=== PATIENT | male | born 1990 | race Caucasian/White ===

== ENCOUNTER 2018-06-18 18:54 | Emergency (ER) | payer SELFPAY ==
[2018-06-18] MEDS ORDERED: DELTASONE PO STA (19:17)
--- NOTE | 2018-06-18 19:22 | Emergency Department Report ---
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 She has an allergy around 5 to 5:30 M today, which was followed by pruritus to his torso. Post no wheezing, dysphagia, shortness of breath. States he has a known allergies presents most department for treatment options. Exposure: food Symptoms: itching. denies: facial swelling, lip swelling, difficulty swallowing , difficulty breathing, orolingual swelling, hoarseness, syncopy, dizziness, nausea, vomiting Treatment Prior to Arrival: none Previous Allergy History: other (treated with with eigq-jvr-xslxtym medications treated with bpal-crw-gwdjltp medications) - Related Data Previous Rx's Medication Instructions Recorded Last Taken Type Famotidine [Pepcid] 40 mg PO DAILY #14 tablet 06/18/18 Unknown Rx hydrOXYzine HCL [Atarax] 25 mg PO Q6HR PRN #20 tablet 06/18/18 Unknown Rx predniSONE [Deltasone] 50 mg PO QDAY #5 tab 06/18/18 Unknown Rx Allergies Allergy/AdvReac Type Severity Reaction Status Date / Time No Known Allergies Allergy Unverified 06/18/18 19:06 ED Review of Systems ROS: Stated complaint: ALLERGIC REACTION Other details as noted in HPI Constitutional: denies: chills, fever Eyes: denies: eye pain, eye discharge, vision change ENT: denies: ear pain, throat pain Respiratory: denies: cough, shortness of breath, wheezing Cardiovascular: denies: chest pain, palpitations Endocrine: no symptoms reported Gastrointestinal: denies: abdominal pain, nausea, diarrhea Genitourinary: denies: urgency, dysuria Musculoskeletal: denies: back pain, joint swelling, arthralgia Skin: denies: rash, lesions Neurological: denies: headache, weakness, paresthesias Psychiatric: denies: anxiety, depression Hematological/Lymphatic: denies: easy bleeding, easy bruising ED Past Medical Hx - Past Medical History Previous Medical History?: No - Surgical History Past Surgical History?: No - Social History Smoking Status: Current Every Day Smoker Substance Use Type: None, Marijuana - Medications Home Medications: Home Medications Medication Instructions Recorded Confirmed Last Taken Type Famotidine [Pepcid] 40 mg PO DAILY #14 tablet 06/18/18 Unknown Rx hydrOXYzine HCL [Atarax] 25 mg PO Q6HR PRN #20 tablet 06/18/18 Unknown Rx predniSONE [Deltasone] 50 mg PO QDAY #5 tab 06/18/18 Unknown Rx ED Physical Exam - General Limitations: No Limitations General appearance: alert, in no apparent distress - Head Head exam: Present: atraumatic, normocephalic - Eye Eye exam: Present: normal appearance - ENT ENT exam: Present: mucous membranes moist, other (. Airway is patent. Tongue and uvula are midline. No drooling. Normal voice. No angioedema) - Neck Neck exam: Present: normal inspection - Respiratory Respiratory exam: Present: normal lung sounds bilaterally. Absent: respiratory distress - Cardiovascular Cardiovascular Exam: Present: regular rate, normal rhythm. Absent: systolic murmur, diastolic murmur, rubs, gallop - GI/Abdominal GI/Abdominal exam: Present: soft, normal bowel sounds - Rectal Rectal exam: Present: deferred - Extremities Exam Extremities exam: Present: normal inspection - Back Exam Back exam: Present: normal inspection - Neurological Exam Neurological exam: Present: alert, oriented X3 - Psychiatric Psychiatric exam: Present: normal affect, normal mood - Skin Skin exam: Present: warm, dry, intact, normal color. Absent: rash, urticaria, pallor, abrasion ED Course Vital Signs 06/18/18 19:02 Temperature 98.2 F Pulse Rate 86 Respiratory 16 Rate Blood Pressure 161/99 O2 Sat by Pulse 99 Oximetry Critical care attestation.: If time is entered above; I have spent that time in minutes in the direct care of this critically ill patient, excluding procedure time. ED Disposition Clinical Impression: Allergic reaction Disposition: DC-01 TO HOME OR SELFCARE Is pt being admited?: No Does the pt Need Aspirin: No Condition: Stable Instructions: Anaphylaxis (ED), Food Allergy (ED), Urticaria (ED) Prescriptions: Famotidine [Pepcid] 40 mg PO DAILY #14 tablet hydrOXYzine HCL [Atarax] 25 mg PO Q6HR PRN #20 tablet PRN Reason: Itching predniSONE [Deltasone] 50 mg PO QDAY #5 tab Referrals: [facility] [Provider Group] - 2-3 Days
[2018-06-18 19:57] VITALS: BP 122/69
== END 2018-06-18 19:55 | disposition home or self-care (01) ==
LOC: ED 18:54
DX: T78.40XA Allergy, unspecified, initial encounter (principal); L29.9 Pruritus, unspecified; F17.200 Nicotine dependence, unspecified, uncomplicated; F12.10 Cannabis abuse, uncomplicated; X58.XXXA Exposure to other specified factors, initial encounter
CPT/HCPCS: 99282; J7512

== ENCOUNTER 2018-12-24 15:16 | Emergency (ER) | payer OTHER ==
[2018-12-24 15:25] VITALS: BP 127/77
[2018-12-24] MEDS ORDERED: DUONEB *Not for PRN Use IH ONE (15:26)
--- NOTE | 2018-12-24 15:26 | Emergency Department Report ---
Chief Complaint: Upper Respiratory Infection Stated Complaint: SOB Time Seen by Provider: 12/24/18 15:22 - HPI History of Present Illness: pt presents with SOB that began last night pt has cough chest discomfort with coughing no fever denies pleuritic CP (+) seasonal allergies smoker states quit 3 days ago occ drinker no drug use MSE screening note: Focused history and physical exam performed. Due to findings the following was ordered: CXR, neb tx ED Disposition for MSE Condition: Stable
[2018-12-24] MEDS ORDERED: ROBITUSSIN PO ONE (16:34)
[2018-12-24] MEDS ORDERED: DELTASONE PO ONE (16:37)
--- NOTE | 2018-12-24 16:37 | Emergency Department Report ---
Minor Respiratory - HPI Minor Respiratory: Yes Able to Tolerate Fluids, Yes Cough, Yes Shortness of Breath, No Rhinorrhea, No Sore Throat, No Ear Pain, No Sick Contacts, No Hemoptysis, No Chest Pain, No Fever Other History: Patient is a 28-year-old 3 days quit smoker who presents complaining of cough 3 days patient describes cough as nonproductive dry cough. Patient denies any history of asthma. Patient states shortness of breath started today this morning. Patient states he did not come into contact with any allergens or contaminants. He denies chest pain, throat pain, fever, nausea or vomiting. <SYLVIE LEROY - Last Filed: 12/24/18 16:37> <DAVID KELLER - Last Filed: 12/24/18 20:05> - HPI Chief Complaint: Upper Respiratory Infection Stated Complaint: SOB Time Seen by Provider: 12/24/18 15:22 ED Review of Systems ROS: Stated complaint: SOB Other details as noted in HPI Comment: All other systems reviewed and negative <SYLVIE LEROY - Last Filed: 12/24/18 16:37> ROS: Stated complaint: SOB Other details as noted in HPI <DAVID KELLER - Last Filed: 12/24/18 20:05> ED Past Medical Hx - Past Medical History Previous Medical History?: No - Surgical History Past Surgical History?: No - Social History Smoking Status: Current Every Day Smoker Substance Use Type: None <SYLVIE LEROY - Last Filed: 12/24/18 16:37> <DAVID KELLER - Last Filed: 12/24/18 20:05> - Medications Home Medications: Home Medications Medication Instructions Recorded Confirmed Last Taken Type Famotidine [Pepcid] 40 mg PO DAILY #14 tablet 06/18/18 Unknown Rx hydrOXYzine HCL [Atarax] 25 mg PO Q6HR PRN #20 tablet 06/18/18 Unknown Rx predniSONE [Deltasone] 50 mg PO QDAY #5 tab 06/18/18 Unknown Rx Benzonatate [Tessalon Perles] 100 mg PO Q8HR #15 capsule 12/24/18 Unknown Rx Minor Respiratory Exam - Exam General: Vital signs noted. No distress. Alert and acting appropriately. HEENT: Yes Moist Mucous Membranes, No Pharyngeal Erythema, No Pharyngeal Exudates, No Rhinorrhea, No Conjuctival Injection, No Frontal Tenderness, No Maxillary Tenderness Ear: Neither TM Bulge, Neither TM Erythema, Neither EAC Pain, Neither EAC Discharge Neck: Yes Supple, No Adenopathy Lungs: Yes Good Air Exchange, No Wheezes, No Ronchi, No Stridor, No Cough, No Labored Respirations, No Retractions, No Use of Accessory Muscles, No Other Abnormal Lung Sounds Heart: Yes Regular, No Murmur Abdomen: Yes Normal Bowel Sounds, No Tenderness, No Peritoneal Signs Skin: No Rash, No Edema Neurologic: Alert and oriented, no deficits. Musculoskeletal: Unremarkable. <SYLVIE LEROY - Last Filed: 12/24/18 16:37> - Exam General: Vital signs noted. No distress. Alert and acting appropriately. Neurologic: Alert and oriented, no deficits. Musculoskeletal: Unremarkable. <ARIANNAKEVIN' Bari - Last Filed: 12/24/18 20:05> ED Course Vital Signs 12/24/18 12/24/18 15:23 15:45 Temperature 99.3 F Pulse Rate 99 H Pulse Rate [ 83 Bilateral] Respiratory 19 Rate Respiratory 18 Rate [Bilateral ] Blood Pressure 127/77 [Left] O2 Sat by Pulse 97 Oximetry <SYLVIE LEROY - Last Filed: 12/24/18 16:37> Vital Signs 12/24/18 12/24/18 15:23 15:45 Temperature 99.3 F Pulse Rate 99 H Pulse Rate [ 83 Bilateral] Respiratory 19 Rate Respiratory 18 Rate [Bilateral ] Blood Pressure 127/77 [Left] O2 Sat by Pulse 97 Oximetry <SINDYLESKEVINAlex Bari - Last Filed: 12/24/18 20:05> ED Medical Decision Making - Medical Decision Making 28-year-old male presents with shortness of breath Chest x-ray ordered and pending. Respiratory breathing treatment and prednisone ordered awaiting administration Pulmonary evaluation: lungs are clear, no rales no rhonchi no wheezing. Vision is satting 99% oxygen on room air Patient is to be reevaluated <SYLVIE LEROY - Last Filed: 12/24/18 16:37> - Radiology Data Radiology results: report reviewed Patient: JARETT MUNGUIA MR#: [id number] : 1990 Acct:[id number] Age/Sex: 28 / M ADM Date: 12/24/18 Loc: ED Attending Dr: Ordering Physician: DELANO MENDOZA Date of Service: 12/24/18 Procedure(s): XR chest routine 2V Accession Number(s): [id number] cc: DELANO MENDOZA Fluoro Time In Minutes: PROCEDURE: XR CHEST ROUTINE 2V TECHNIQUE: Chest 2 views HISTORY: SOB, cough COMPARISONS: FINDINGS: Cardiac and mediastinal contours are unremarkable. No focal pulmonary infiltrate identified. No pleural fluid collection seen. Mild thickening of the minor fissure noted. Pulmonary vasculature is unremarkable. IMPRESSION: No acute findings in the chest. This document is electronically signed by Willie Hudson MD., December 24 2018 05:44:14 PM ET Transcribed By: RJ Dictated By: JAVIER HUDSON MD Electronically Authenticated By: JAVIER HUDSON MD Signed Date/Time: 12/24/181744 DD/ 57 TD/TT: 12/24/181657 <DAVID KELLER - Last Filed: 12/24/18 20:05> Critical care attestation.: If time is entered above; I have spent that time in minutes in the direct care of this critically ill patient, excluding procedure time. <SYLVIE LEROY - Last Filed: 12/24/18 16:37> Critical care attestation.: If time is entered above; I have spent that time in minutes in the direct care of this critically ill patient, excluding procedure time. <DAVID KELLER - Last Filed: 12/24/18 20:05> ED Disposition <SYLVIE LEROY - Last Filed: 12/24/18 16:37> Is pt being admited?: No Does the pt Need Aspirin: No <DAVID KELLER - Last Filed: 12/24/18 20:05> Clinical Impression: Cough Disposition: DC-01 TO HOME OR SELFCARE Condition: Stable Instructions: Antitussives (By mouth), Cold Symptoms (ED) Additional Instructions: Take medication as prescribed. Increase fluid. Take over the counter Zyrtec. Prescriptions: Benzonatate [Tessalon Perles] 100 mg PO Q8HR #15 capsule Referrals: CORIN DIAZ MD [Primary Care Provider] - 3-5 Days Forms: Work/School Release Form(ED)
--- NOTE | 2018-12-24 17:45 | XRay Report ---
PROCEDURE: XR CHEST ROUTINE 2V TECHNIQUE: Chest 2 views HISTORY: SOB, cough COMPARISONS: FINDINGS: Cardiac and mediastinal contours are unremarkable. No focal pulmonary infiltrate identified. No pleur al fluid collection seen. Mild thickening of the minor fissure noted. Pulmonary vasculature is unrema rkable. IMPRESSION: No acute findings in the chest. This document is electronically signed by Willie Figueroa MD., December 24 2018 05:44:14 PM ET
== END 2018-12-24 20:12 | disposition home or self-care (01) ==
LOC: ED 15:16
DX: R05 Cough (principal); R06.02 Shortness of breath; F17.200 Nicotine dependence, unspecified, uncomplicated
CPT/HCPCS: 71046; 94640; 99283; J7512

== ENCOUNTER 2019-03-18 01:30 | Emergency (ER) | payer OTHER ==
[2019-03-18 01:39] VITALS: BP 130/84
[2019-03-18] MEDS ORDERED: SOLU-Medrol IM ONE (02:44)
[2019-03-18] MEDS ORDERED: IBUPROFEN PO ONE (02:44)
[2019-03-18] MEDS ORDERED: PROVENTIL IH ONE (02:44)
[2019-03-18] MEDS ORDERED: XYLOCAINE 1% MPF 5 mL INFILTRATI ONE (02:46)
[2019-03-18] MEDS ORDERED: ROCEPHIN IM ONE (02:46)
--- NOTE | 2019-03-18 02:46 | Emergency Department Report ---
Minor Respiratory - HPI Chief Complaint: Upper Respiratory Infection Stated Complaint: SOB BODY ACHES DIZZINESS COUGH Time Seen by Provider: 03/18/19 02:44 Duration: 3 Days Pain Location: Chest Severity: mild Minor Respiratory: Yes Able to Tolerate Fluids, Yes Cough, Yes Shortness of Breath, No Rhinorrhea, No Sore Throat, No Ear Pain, No Sick Contacts, No Hemoptysis, No Chest Pain, No Fever Other History: 29 yo with asthma comes to ER with cough cold and congestion. Wheezing on admit. no fever. pos chills per pt. ED Review of Systems ROS: Stated complaint: SOB BODY ACHES DIZZINESS COUGH Other details as noted in HPI Comment: All other systems reviewed and negative ED Past Medical Hx - Past Medical History Previous Medical History?: Yes Hx Asthma: Yes - Surgical History Past Surgical History?: Yes Additional Surgical History: as baby - Family History Family history: no significant - Social History Smoking Status: Current Every Day Smoker Substance Use Type: None - Medications Home Medications: Home Medications Medication Instructions Recorded Confirmed Last Taken Type ALBUTEROL Inhaler (OR & NICU) 2 puff IH QID PRN #1 inhalation 03/18/19 Unknown Rx [ProAir HFA Inhaler] Azithromycin [Zithromax Z-UMANG] 250 mg PO DAILY #6 tablet 03/18/19 Unknown Rx Benzonatate [Tessalon Perles] 100 mg PO Q8HR PRN #20 capsule 03/18/19 Unknown Rx Fluticasone [Flonase] 1 spray NS QDAY #1 bottle 03/18/19 Unknown Rx predniSONE [Deltasone] 20 mg PO DAILY #5 tablet 03/18/19 Unknown Rx Minor Respiratory Exam - Exam General: Vital signs noted. No distress. Alert and acting appropriately. HEENT: Yes Moist Mucous Membranes, No Pharyngeal Erythema, No Pharyngeal Exudates Ear: Neither TM Bulge, Neither TM Erythema, Neither EAC Pain, Neither EAC Discharge Neck: Yes Supple, No Adenopathy Lungs: Yes Good Air Exchange, Yes Wheezes, Yes Cough, No Ronchi, No Stridor Heart: Yes Regular Neurologic: Alert and oriented, no deficits. Musculoskeletal: Unremarkable. ED Course Vital Signs 03/18/19 01:33 Temperature 99.6 F Pulse Rate 95 H Respiratory 18 Rate Blood Pressure 130/84 O2 Sat by Pulse 95 Oximetry ED Medical Decision Making - Medical Decision Making duoneb, rocephin and solumedrol in ER dc home with dc plan of care including pcp follow up Vital Signs 03/18/19 01:33 Temperature 99.6 F Pulse Rate 95 H Respiratory 18 Rate Blood Pressure 130/84 O2 Sat by Pulse 95 Oximetry - Differential Diagnosis a/c asthma Critical care attestation.: If time is entered above; I have spent that time in minutes in the direct care of this critically ill patient, excluding procedure time. ED Disposition Clinical Impression: URTI (acute upper respiratory infection), Acute bronchitis Disposition: DC-01 TO HOME OR SELFCARE Is pt being admited?: No Does the pt Need Aspirin: No Condition: Stable Instructions: Acute Bronchitis (ED) Additional Instructions: hydrate well with water meds as ordered follow up with pcp this week to be sure you are getting better motrin or tylenol for fever or pain Prescriptions: predniSONE [Deltasone] 20 mg PO DAILY #5 tablet Fluticasone [Flonase] 1 spray NS QDAY #1 bottle ALBUTEROL Inhaler (OR & NICU) [ProAir HFA Inhaler] 2 puff IH QID PRN #1 inhalation PRN Reason: Shortness Of Breath Benzonatate [Tessalon Perles] 100 mg PO Q8HR PRN #20 capsule PRN Reason: Cough Azithromycin [Zithromax Z-UMANG] 250 mg PO DAILY #6 tablet Referrals: [facility] MD KRIS [Primary Care Provider] - 3-5 Days RAYMOND HUANG MD [Staff Physician] - 3-5 Days Time of Disposition: 02:46
== END 2019-03-18 03:42 | disposition home or self-care (01) ==
LOC: ED 01:30
DX: J06.9 Acute upper respiratory infection, unspecified (principal); J20.9 Acute bronchitis, unspecified; J45.909 Unspecified asthma, uncomplicated; F17.200 Nicotine dependence, unspecified, uncomplicated; Z91.010 Allergy to peanuts; Z91.013 Allergy to seafood; Z79.899 Other long term (current) drug therapy
CPT/HCPCS: 94640; 96372; 99283; J0696; J2930

== ENCOUNTER 2019-03-19 18:25 | Emergency (ER) | payer OTHER ==
[2019-03-19] MEDS ORDERED: DECADRON IM ONE (18:35)
[2019-03-19 18:36] VITALS: BP 123/75
[2019-03-19] MEDS ORDERED: PROVENTIL IH ONE ×2 (18:36→18:40)
[2019-03-19] MEDS ORDERED: ATROVENT IH ONE ×2 (18:36→18:40)
--- NOTE | 2019-03-19 18:37 | Event Note ---
ED Screening Note Date of service: 03/19/19 Time: 18:37 ED Screening Note: 29 y/o male comes in for SOB and wheezing. Has not been able to get inhaler secondary to no money. This initial assessment/diagnostic orders/clinical plan/treatment(s) is/are subject to change based on patients health status, clinical progression and re- assessment by fellow clinical providers in the ED. Further treatment and workup at subsequent clinical providers discretion. Patient/guardian urged not to elope from the ED as their condition may be serious if not clinically assessed and managed. Initial orders include:
--- NOTE | 2019-03-19 19:37 | Emergency Department Report ---
ED Asthma HPI - General Chief Complaint: Dyspnea/Respdistress Stated Complaint: SCOTT Time Seen by Provider: 03/19/19 18:43 Source: patient Mode of arrival: Ambulatory Limitations: No Limitations - History of Present Illness Initial Comments: This is a 29-year-old male nontoxic, well nourished in appearance, no acute signs of distress presents to the ED with c/o of acute on chronic asthma exacerbation. Patient stated she is out of her albuterol inhaler. Patient denies any cough. Patient denies any sick contact. Patient denies any recent travels, long car, recent hospital stays. Patient denies any calf pain or calf tenderness. Patient denies any chest pain, short of breath, fever, chills, nausea, vomiting, hemoptysis, numbness, tingling, headache or stiff neck. Past medical history includes asthma. MD Complaint: "asthma attack", shortness of breath, wheezing -: This afternoon Asthma History: childhood onset Severity: mild Context: none known Associated Symptoms: dry cough. denies: productive cough, fever, chest pain, hemoptysis, leg edema, syncope - Related Data Current Asthma Therapy: none Previous Rx's Medication Instructions Recorded Last Taken Type ALBUTEROL Inhaler (OR & NICU) 2 puff IH QID PRN #1 inhalation 03/18/19 Unknown Rx [ProAir HFA Inhaler] Azithromycin [Zithromax Z-UMANG] 250 mg PO DAILY #6 tablet 03/18/19 Unknown Rx Benzonatate [Tessalon Perles] 100 mg PO Q8HR PRN #20 capsule 03/18/19 Unknown Rx Fluticasone [Flonase] 1 spray NS QDAY #1 bottle 03/18/19 Unknown Rx predniSONE [Deltasone] 20 mg PO DAILY #5 tablet 03/18/19 Unknown Rx ALBUTEROL Inhaler (OR & NICU) 2 puff IH QID PRN #1 inhalation 03/19/19 Unknown Rx [ProAir HFA Inhaler] Prednisone [predniSONE 10 mg 10 mg PO .TAPER #1 tab.ds.pk 03/19/19 Unknown Rx (6-Day Pack, 21 Tabs)] Allergies Allergy/AdvReac Type Severity Reaction Status Date / Time pecan nut Allergy Swelling Verified 03/18/19 01:38 shellfish derived Allergy Hives Verified 12/24/18 15:18 ED Review of Systems ROS: Stated complaint: SCOTT Other details as noted in HPI Constitutional: denies: chills, fever Eyes: denies: eye pain, eye discharge, vision change ENT: denies: ear pain, throat pain Respiratory: shortness of breath, wheezing. denies: cough Cardiovascular: denies: chest pain, palpitations Endocrine: no symptoms reported Gastrointestinal: denies: abdominal pain, nausea, diarrhea Genitourinary: denies: urgency, dysuria Musculoskeletal: denies: back pain, joint swelling, arthralgia Skin: denies: rash, lesions Neurological: denies: headache, weakness, paresthesias Psychiatric: denies: anxiety, depression Hematological/Lymphatic: denies: easy bleeding, easy bruising ED Past Medical Hx - Past Medical History Hx Asthma: Yes - Surgical History Additional Surgical History: as baby - Social History Smoking Status: Current Every Day Smoker Substance Use Type: None - Medications Home Medications: Home Medications Medication Instructions Recorded Confirmed Last Taken Type ALBUTEROL Inhaler (OR & NICU) 2 puff IH QID PRN #1 inhalation 03/18/19 Unknown Rx [ProAir HFA Inhaler] Azithromycin [Zithromax Z-UMANG] 250 mg PO DAILY #6 tablet 03/18/19 Unknown Rx Benzonatate [Tessalon Perles] 100 mg PO Q8HR PRN #20 capsule 03/18/19 Unknown Rx Fluticasone [Flonase] 1 spray NS QDAY #1 bottle 03/18/19 Unknown Rx predniSONE [Deltasone] 20 mg PO DAILY #5 tablet 03/18/19 Unknown Rx ALBUTEROL Inhaler (OR & NICU) 2 puff IH QID PRN #1 inhalation 03/19/19 Unknown Rx [ProAir HFA Inhaler] Prednisone [predniSONE 10 mg 10 mg PO .TAPER #1 tab.ds.pk 03/19/19 Unknown Rx (6-Day Pack, 21 Tabs)] ED Physical Exam - General Limitations: No Limitations General appearance: alert, in no apparent distress - Head Head exam: Present: atraumatic, normocephalic - Eye Eye exam: Present: normal appearance - Neck Neck exam: Present: normal inspection, full ROM. Absent: tenderness, m eningismus, lymphadenopathy - Respiratory Respiratory exam: Present: normal lung sounds bilaterally, wheezes (bilateral upper and lower lobes). Absent: respiratory distress, rales, rhonchi, stridor, chest wall tenderness, accessory muscle use, decreased breath sounds, prolonged expiratory - Cardiovascular Cardiovascular Exam: Present: regular rate, normal rhythm, normal heart sounds. Absent: irregular rhythm, systolic murmur, diastolic murmur, rubs, gallop - Rectal Rectal exam: Present: deferred - Extremities Exam Extremities exam: Present: normal inspection, full ROM, normal capillary refill - Back Exam Back exam: Present: normal inspection, full ROM - Neurological Exam Neurological exam: Present: alert, oriented X3, normal gait - Psychiatric Psychiatric exam: Present: normal affect, normal mood - Skin Skin exam: Present: warm, dry, intact, normal color. Absent: rash ED Course Vital Signs 03/19/19 18:35 Temperature 97.8 F Pulse Rate 96 H Respiratory 24 Rate Blood Pressure 123/75 O2 Sat by Pulse 99 Oximetry - Reevaluation(s) Reevaluation #1: 03/19/19 19:35 Patient is speaking in full sentences with no signs of distress noted. ED Medical Decision Making - Medical Decision Making This is a 29-year-old male that presents with asthma exacerbation. Patient is stable and was examined by me. Chest x-ray has been obtained and dictated by the radiologist within normal limits. Patient is notified of the x-ray report with no questions noted by the patient. Patient did receive breathing treatment and steroids in the ED which patient the symptoms has resolved and subsided. Posttreatment and there is no wheezing upon auscultation. Patient is discharged with albuterol and prednisone. Patient also received a good Rx discount perception card at discharge. Patient was referred to Follow-up with a primary care doctor in 3-5 days or if symptoms worsen and continue return to emergency room as soon as possible. At time of discharge, the patient does not seem toxic or ill in appearance. No acute signs of distress noted. Patient agrees to discharge treatment plan of care. No further questions noted by the patient. This chart is dictated with using [employer] Critical care attestation.: If time is entered above; I have spent that time in minutes in the direct care of this critically ill patient, excluding procedure time. ED Disposition Clinical Impression: Asthma exacerbation Qualifiers: Asthma severity: mild Asthma persistence: intermittent Qualified Code(s): J45.21 - Mild intermittent asthma with (acute) exacerbation Disposition: DC-01 TO HOME OR SELFCARE Is pt being admited?: No Does the pt Need Aspirin: No Condition: Stable Instructions: Asthma (ED) Additional Instructions: Follow-up with a primary care doctor in 3-5 days or if symptoms worsen and cont inue return to emergency room as soon as possible. Prescriptions: Prednisone [predniSONE 10 mg (6-Day Pack, 21 Tabs)] 10 mg PO .TAPER #1 tab.ds.pk ALBUTEROL Inhaler (OR & NICU) [ProAir HFA Inhaler] 2 puff IH QID PRN #1 inhalation PRN Reason: Shortness Of Breath Referrals: PRIMARY CARE, [Referring] - 3-5 Days THONG TRINIDAD MD [Staff Physician] - 3-[address] [facility] [place] [Outside] - 3-5 Days [facility] [Outside] - 3-5 Days Forms: Work/School Release Form(ED)
[2019-03-19] MEDS ORDERED: IBUPROFEN PO ONE (19:54)
--- NOTE | 2019-03-19 21:08 | XRay Report ---
CHEST 2 VIEWS INDICATION / CLINICAL INFORMATION: sob. Dyspnea COMPARISON: None available. FINDINGS: SUPPORT DEVICES: None. HEART / MEDIASTINUM: No significant abnormality. LUNGS / PLEURA: No significant pulmonary or pleural abnormality. No pneumothorax. ADDITIONAL FINDINGS: No significant additional findings. IMPRESSION: 1. No acute findings. Signer Name: Shaun Nelson MD Signed: 03/19/2019 9:04 PM Workstation Name: [id number]
== END 2019-03-19 21:17 | disposition home or self-care (01) ==
LOC: ED 18:25
DX: J45.21 Mild intermittent asthma with (acute) exacerbation (principal); F17.200 Nicotine dependence, unspecified, uncomplicated; Z79.899 Other long term (current) drug therapy; Z91.010 Allergy to peanuts; Z91.013 Allergy to seafood
CPT/HCPCS: 71046; 94640; 96372; 99283; J1100

== ENCOUNTER 2019-04-27 13:22 | Emergency (ER) | payer OTHER ==
[2019-04-27 13:45] VITALS: BP 134/83
--- NOTE | 2019-04-27 13:47 | Event Note ---
ED Screening Note Date of service: 04/27/19 Time: 13:42 ED Screening Note: 29 y o male with pmh of asthma presents with Allegic reaction while at work he inhaled shell fish cc of tingling to lips and arms no rash This initial assessment/diagnostic orders/clinical plan/treatment(s) is/are subject to change based on patients health status, clinical progression and re- assessment by fellow clinical providers in the ED. Further treatment and workup at subsequent clinical providers discretion. Patient/guardian urged not to elope from the ED as their condition may be serious if not clinically assessed and managed. Initial orders include: steroids , benadryl, pepcid
[2019-04-27] MEDS ORDERED: BENADRYL IV ONE (14:24)
[2019-04-27] MEDS ORDERED: DECADRON IV ONE (14:24)
[2019-04-27] MEDS ORDERED: NACL 0.9% 1000 ML 1,000 ML IV ONE (14:24)
[2019-04-27] MEDS ORDERED: PEPCID IV ONE (14:24)
--- NOTE | 2019-04-27 14:26 | Emergency Department Report ---
ED Allergic Reaction HPI - General Chief complaint: Allergic Reaction Stated complaint: ALLERGIC REACTION Time Seen by Provider: 04/27/19 13:42 Source: patient Mode of arrival: Ambulatory Limitations: No Limitations - History of Present Illness Initial Comments: This is a 29-year-old male nontoxic, well nourished in appearance, no acute signs of distress presents to the ED with c/o of generalized itching after being exposed to shellfish at work. He denies any rash or hives. Denies any angioedema or swelling. Patient denies any drooling, hoarseness or facial swelling. Patient denies any trauma. She denies any fever, chills, nausea, vomiting, chest pain, shortness of breath, headache, stiff neck, numbness or tingling. Patient denies any drug allergies with no significant PMH. MD Complaint: other (itching) -: This afternoon Exposure: food Symptoms: itching. denies: rash, facial swelling, lip swelling, difficulty swallowing, difficulty breathing, orolingual swelling, hoarseness, syncopy, dizziness, nausea, vomiting, abdominal pain Severity: mild Treatment Prior to Arrival: none Previous Allergy History: none - Related Data Previous Rx's Medication Instructions Recorded Last Taken Type ALBUTEROL Inhaler (OR & NICU) 2 puff IH QID PRN #1 inhalation 03/18/19 Unknown Rx [ProAir HFA Inhaler] Azithromycin [Zithromax Z-UMANG] 250 mg PO DAILY #6 tablet 03/18/19 Unknown Rx Benzonatate [Tessalon Perles] 100 mg PO Q8HR PRN #20 capsule 03/18/19 Unknown Rx Fluticasone [Flonase] 1 spray NS QDAY #1 bottle 03/18/19 Unknown Rx predniSONE [Deltasone] 20 mg PO DAILY #5 tablet 03/18/19 Unknown Rx ALBUTEROL Inhaler (OR & NICU) 2 puff IH QID PRN #1 inhalation 03/19/19 Unknown Rx [ProAir HFA Inhaler] Prednisone [predniSONE 10 mg 10 mg PO .TAPER #1 tab.ds.pk 03/19/19 Unknown Rx (6-Day Pack, 21 Tabs)] Prednisone [predniSONE 10 mg 10 mg PO .TAPER #1 tab.ds.pk 04/27/19 Unknown Rx (6-Day Pack, 21 Tabs)] diphenhydrAMINE [Benadryl CAP] 25 mg PO Q6HR PRN #12 capsule 04/27/19 Unknown Rx Allergies Allergy/AdvReac Type Severity Reaction Status Date / Time pecan nut Allergy Swelling Verified 03/18/19 01:38 shellfish derived Allergy Hives Verified 12/24/18 15:18 ED Review of Systems ROS: Stated complaint: ALLERGIC REACTION Other details as noted in HPI Constitutional: denies: chills, fever Eyes: denies: eye pain, eye discharge, vision change ENT: denies: ear pain, throat pain Respiratory: denies: cough, shortness of breath, wheezing Cardiovascular: denies: chest pain, palpitations Endocrine: no symptoms reported Gastrointestinal: denies: abdominal pain, nausea, diarrhea Genitourinary: denies: urgency, dysuria Musculoskeletal: denies: back pain, joint swelling, arthralgia Skin: denies: rash, lesions Neurological: denies: headache, weakness, paresthesias Psychiatric: denies: anxiety, depression Hematological/Lymphatic: denies: easy bleeding, easy bruising ED Past Medical Hx - Past Medical History Hx Psychiatric Treatment: Yes (anxiety) Hx Asthma: Yes - Surgical History Additional Surgical History: as baby - Social History Smoking Status: Current Every Day Smoker Substance Use Type: None - Medications Home Medications: Home Medications Medication Instructions Recorded Confirmed Last Taken Type ALBUTEROL Inhaler (OR & NICU) 2 puff IH QID PRN #1 inhalation 03/18/19 Unknown Rx [ProAir HFA Inhaler] Azithromycin [Zithromax Z-UMANG] 250 mg PO DAILY #6 tablet 03/18/19 Unknown Rx Benzonatate [Tessalon Perles] 100 mg PO Q8HR PRN #20 capsule 03/18/19 Unknown Rx Fluticasone [Flonase] 1 spray NS QDAY #1 bottle 03/18/19 Unknown Rx predniSONE [Deltasone] 20 mg PO DAILY #5 tablet 03/18/19 Unknown Rx ALBUTEROL Inhaler (OR & NICU) 2 puff IH QID PRN #1 inhalation 03/19/19 Unknown Rx [ProAir HFA Inhaler] Prednisone [predniSONE 10 mg 10 mg PO .TAPER #1 tab.ds.pk 03/19/19 Unknown Rx (6-Day Pack, 21 Tabs)] Prednisone [predniSONE 10 mg 10 mg PO .TAPER #1 tab.ds.pk 04/27/19 Unknown Rx (6-Day Pack, 21 Tabs)] diphenhydrAMINE [Benadryl CAP] 25 mg PO Q6HR PRN #12 capsule 04/27/19 Unknown Rx ED Physical Exam - General Limitations: No Limitations General appearance: alert, in no apparent distress - Head Head exam: Present: atraumatic, normocephalic - ENT ENT exam: Present: normal exam, normal orophraynx, other (uvula midline. no facial swelling. no angiedema present.) - Neck Neck exam: Present: normal inspection, full ROM. Absent: tenderness, meningismus, lymphadenopathy - Respiratory Respiratory exam: Present: normal lung sounds bilaterally. Absent: respiratory distress, wheezes, rales, rhonchi, stridor, chest wall tenderness, accessory muscle use, decreased breath sounds, prolonged expiratory - Cardiovascular Cardiovascular Exam: Present: regular rate, normal rhythm, normal heart sounds. Absent: irregular rhythm, systolic murmur, diastolic murmur, rubs, gallop - Extremities Exam Extremities exam: Present: normal inspection, full ROM - Back Exam Back exam: Present: normal inspection, full ROM - Neurological Exam Neurological exam: Present: alert, oriented X3, normal gait - Psychiatric Psychiatric exam: Present: normal affect, normal mood - Skin Skin exam: Present: warm, dry, intact, normal color. Absent: rash ED Course Vital Signs 04/27/19 13:42 Temperature 98.8 F Pulse Rate 95 H Respiratory 18 Rate Blood Pressure 134/83 O2 Sat by Pulse 99 Oximetry - Reevaluation(s) Reevaluation #1: 04/27/19 14:28 Patient is speaking in full sentences with no signs of distress noted. ED Medical Decision Making - Medical Decision Making This is a 29-year-old male that presents with allergic reaction. Patient is stable was examined by me. There is no facial swelling. No angioedema. There is no cellulitis. No hoarseness. Patient received 1 L normal saline, Benadryl, Decadron, and Pepcid in the ED IV. Patient was instructed not to operate any machinery after discharge due to possible drowsiness of Benadryl. Patient stated that a family member will drive patient home after discharge. Patient is discharged with prednisone and Benadryl. Patient was referred to Follow-up with a primary care doctor in 3-5 days or if symptoms worsen and continue return to emergency room as soon as possible. At time of discharge, the patient does not seem toxic or ill in appearance. No acute signs of distress noted. Patient agrees to discharge treatment plan of care. No further questions noted by the patient. Critical care attestation.: If time is entered above; I have spent that time in minutes in the direct care of this critically ill patient, excluding procedure time. ED Disposition Clinical Impression: Allergic reaction Qualifiers: Encounter type: initial encounter Qualified Code(s): T78.40XA - Allergy, unspecified, initial encounter Disposition: TO HOME OR SELFCARE Is pt being admited?: No Does the pt Need Aspirin: No Condition: Stable Instructions: Diphenhydramine (By mouth), Allergies (ED) Additional Instructions: Follow-up with a primary care doctor in 3-5 days or if symptoms worsen and continue return to emergency room as soon as possible. Prescriptions: diphenhydrAMINE [Benadryl CAP] 25 mg PO Q6HR PRN #12 capsule PRN Reason: Itching Prednisone [predniSONE 10 mg (6-Day Pack, 21 Tabs)] 10 mg PO .TAPER #1 tab.ds.pk Referrals: PRIMARY CARE, [Referring] - 3-5 Days THONG TRINIDAD MD [Staff Physician] - 3-5 Days [facility] [place] [Outside] - 3-5 Days [facility] [Outside] - 3-5 Days Forms: Work/School Release Form(ED)
== END 2019-04-27 17:36 | disposition home or self-care (01) ==
LOC: ED 13:22
DX: T78.40XA Allergy, unspecified, initial encounter (principal); J45.909 Unspecified asthma, uncomplicated; F41.9 Anxiety disorder, unspecified; F17.200 Nicotine dependence, unspecified, uncomplicated; Z79.899 Other long term (current) drug therapy; Z91.018 Allergy to other foods; Z91.010 Allergy to peanuts
CPT/HCPCS: 96374; 96375; 99282; J1100; J1200; J7030

== ENCOUNTER 2019-05-21 16:51 | Emergency (ER) | payer OTHER ==
[2019-05-21 17:13] VITALS: BP 111/62
[2019-05-21] MEDS ORDERED: SODIUM CHLORIDE 0.9% 1000 ML 1,000 ML IV ONE (17:45)
[2019-05-21] MEDS ORDERED: dexAMETHasone 20 MG/5 ML VIAL IV ONE (17:45)
[2019-05-21] MEDS ORDERED: diphenhydrAMINE 50 MG/ML VIAL IV ONE (17:45)
--- NOTE | 2019-05-21 19:04 | Emergency Department Report ---
ED Allergic Reaction HPI - General Chief complaint: Allergic Reaction Stated complaint: ALLERGIC REACTION Time Seen by Provider: 05/21/19 17:44 Source: patient Mode of arrival: Ambulatory Limitations: No Limitations - History of Present Illness Initial Comments: This is a 29-year-old male nontoxic, well nourished in appearance, no acute signs of distress presents to the ED with c/o of generalized itching after being exposed to shellfish at work. Patient is known to me with similar symptoms earlier this week. He denies any rash or hives. Denies any angioedema or swelling. Patient denies any drooling, hoarseness or facial swelling. Patient denies any trauma. She denies any fever, chills, nausea, vomiting, chest pain, shortness of breath, headache, stiff neck, numbness or tingling. Patient denies any drug allergies with no significant PMH. MD Complaint: allergic reaction -: This evening Exposure: food Symptoms: itching. denies: rash, facial swelling, lip swelling, difficulty swallowing, difficulty breathing, orolingual swelling, hoarseness, syncopy, dizziness, nausea, vomiting, abdominal pain Treatment Prior to Arrival: none Previous Allergy History: prior ED visit(s) - Related Data Previous Rx's Medication Instructions Recorded Last Taken Type ALBUTEROL Inhaler (OR & NICU) 2 puff IH QID PRN #1 inhalation 03/18/19 Unknown Rx [ProAir HFA Inhaler] Azithromycin [Zithromax Z-UMANG] 250 mg PO DAILY #6 tablet 03/18/19 Unknown Rx Benzonatate [Tessalon Perles] 100 mg PO Q8HR PRN #20 capsule 03/18/19 Unknown Rx Fluticasone [Flonase] 1 spray NS QDAY #1 bottle 03/18/19 Unknown Rx predniSONE [Deltasone] 20 mg PO DAILY #5 tablet 03/18/19 Unknown Rx ALBUTEROL Inhaler (OR & NICU) 2 puff IH QID PRN #1 inhalation 03/19/19 Unknown Rx [ProAir HFA Inhaler] Prednisone [predniSONE 10 mg 10 mg PO .TAPER #1 tab.ds.pk 03/19/19 Unknown Rx (6-Day Pack, 21 Tabs)] Prednisone [predniSONE 10 mg 10 mg PO .TAPER #1 tab.ds.pk 04/27/19 Unknown Rx (6-Day Pack, 21 Tabs)] diphenhydrAMINE [Benadryl CAP] 25 mg PO Q6HR PRN #12 capsule 04/27/19 Unknown Rx Prednisone [predniSONE 10 mg 10 mg PO .TAPER #1 tab.ds.pk 05/21/19 Unknown Rx (6-Day Pack, 21 Tabs)] diphenhydrAMINE [Benadryl CAP] 25 mg PO Q6HR PRN #12 capsule 05/21/19 Unknown Rx Allergies Allergy/AdvReac Type Severity Reaction Status Date / Time pecan nut Allergy Swelling Verified 05/21/19 17:13 shellfish derived Allergy Hives Verified 05/21/19 17:13 ED Review of Systems ROS: Stated complaint: ALLERGIC REACTION Other details as noted in HPI Constitutional: denies: chills, fever Eyes: denies: eye pain, eye discharge, vision change ENT: denies: ear pain, throat pain Respiratory: denies: cough, shortness of breath, wheezing Cardiovascular: denies: chest pain, palpitations Endocrine: no symptoms reported Gastrointestinal: denies: abdominal pain, nausea, diarrhea Genitourinary: denies: urgency, dysuria Musculoskeletal: denies: back pain, joint swelling, arthralgia Skin: other (itching ). denies: rash, lesions Neurological: denies: headache, weakness, paresthesias Psychiatric: denies: anxiety, depression Hematological/Lymphatic: denies: easy bleeding, easy bruising ED Past Medical Hx - Past Medical History Hx Psychiatric Treatment: Yes (anxiety) Hx Asthma: Yes - Surgical History Additional Surgical History: as baby - Social History Smoking Status: Current Every Day Smoker Substance Use Type: None - Medications Home Medications: Home Medications Medication Instructions Recorded Confirmed Last Taken Type ALBUTEROL Inhaler (OR & NICU) 2 puff IH QID PRN #1 inhalation 03/18/19 Unknown Rx [ProAir HFA Inhaler] Azithromycin [Zithromax Z-UMANG] 250 mg PO DAILY #6 tablet 03/18/19 Unknown Rx Benzonatate [Tessalon Perles] 100 mg PO Q8HR PRN #20 capsule 03/18/19 Unknown Rx Fluticasone [Flonase] 1 spray NS QDAY #1 bottle 03/18/19 Unknown Rx predniSONE [Deltasone] 20 mg PO DAILY #5 tablet 03/18/19 Unknown Rx ALBUTEROL Inhaler (OR & NICU) 2 puff IH QID PRN #1 inhalation 03/19/19 Unknown Rx [ProAir HFA Inhaler] Prednisone [predniSONE 10 mg 10 mg PO .TAPER #1 tab.ds.pk 03/19/19 Unknown Rx (6-Day Pack, 21 Tabs)] Prednisone [predniSONE 10 mg 10 mg PO .TAPER #1 tab.ds.pk 04/27/19 Unknown Rx (6-Day Pack, 21 Tabs)] diphenhydrAMINE [Benadryl CAP] 25 mg PO Q6HR PRN #12 capsule 04/27/19 Unknown Rx Prednisone [predniSONE 10 mg 10 mg PO .TAPER #1 tab.ds.pk 05/21/19 Unknown Rx (6-Day Pack, 21 Tabs)] diphenhydrAMINE [Benadryl CAP] 25 mg PO Q6HR PRN #12 capsule 05/21/19 Unknown Rx ED Physical Exam - General Limitations: No Limitations General appearance: alert, in no apparent distress - Head Head exam: Present: atraumatic, normocephalic - ENT ENT exam: Present: normal exam, normal orophraynx, other (uvula midline. no angio edema. no swelling.) - Neck Neck exam: Present: normal inspection, full ROM. Absent: tenderness, meningismus, lymphadenopathy - Respiratory Respiratory exam: Present: normal lung sounds bilaterally. Absent: respiratory distress, wheezes, rales, rhonchi, stridor, chest wall tenderness, accessory muscle use, decreased breath sounds, prolonged expiratory - Cardiovascular Cardiovascular Exam: Present: regular rate, normal rhythm - Extremities Exam Extremities exam: Present: normal inspection, full ROM - Back Exam Back exam: Present: normal inspection, full ROM - Neurological Exam Neurological exam: Present: alert, oriented X3, normal gait - Psychiatric Psychiatric exam: Present: normal affect, normal mood - Skin Skin exam: Present: warm, dry, intact, normal color. Absent: rash, cyanosis, diaphoretic, erythema, vesicles, petechiae, pallor, abrasion, ecchymosis ED Course Vital Signs 05/21/19 17:11 Temperature 99.0 F Pulse Rate 69 Respiratory 16 Rate Blood Pressure 111/62 O2 Sat by Pulse 96 Oximetry - Reevaluation(s) Reevaluation #1: 05/21/19 19:03 Patient is speaking in full sentences with no signs of distress noted. ED Medical Decision Making - Medical Decision Making This is a 29-year-old male that presents with allergic reaction. Patient is s table was examined by me. There is no facial swelling. No angioedema. There is no cellulitis. No hoarseness. Patient received 1 L normal saline, Benadryl, and Decadron in the ED IV. Patient was instructed not to operate any machinery after discharge due to possible drowsiness of Benadryl. Patient stated that a family member will drive patient home after discharge. Patient is discharged with prednisone and Benadryl. Patient was referred to Follow-up with a primary care doctor in 3-5 days or if symptoms worsen and continue return to emergency room as soon as possible. At time of discharge, the patient does not seem toxic or ill in appearance. No acute signs of distress noted. Patient agrees to discharge treatment plan of care. No further questions noted by the patient. Critical care attestation.: If time is entered above; I have spent that time in minutes in the direct care of this critically ill patient, excluding procedure time. ED Disposition Clinical Impression: Allergic reaction Qualifiers: Encounter type: initial encounter Qualified Code(s): T78.40XA - Allergy, unspecified, initial encounter Disposition: DC-01 TO HOME OR SELFCARE Is pt being admited?: No Does the pt Need Aspirin: No Condition: Stable Instructions: Food Allergy (ED) Additional Instructions: Follow-up with a primary care doctor in 3-5 days or if symptoms worsen and continue return to emergency room as soon as possible. Prescriptions: diphenhydrAMINE [Benadryl CAP] 25 mg PO Q6HR PRN #12 capsule PRN Reason: Itching Prednisone [predniSONE 10 mg (6-Day Pack, 21 Tabs)] 10 mg PO .TAPER #1 tab.ds.pk Referrals: PRIMARY CARE, [Referring] - 3-5 Days THONG TRINIDAD MD [Staff Physician] - 3-5 Days [facility] [Outside] - 3-5 Days [facility] [Outside] - 3-5 Days Forms: Work/School Release Form(ED)
== END 2019-05-21 19:15 | disposition home or self-care (01) ==
LOC: ED 16:51
DX: T78.40XA Allergy, unspecified, initial encounter (principal); F41.9 Anxiety disorder, unspecified; J45.909 Unspecified asthma, uncomplicated; F17.200 Nicotine dependence, unspecified, uncomplicated; Z91.010 Allergy to peanuts; Z91.013 Allergy to seafood; Z79.899 Other long term (current) drug therapy; X58.XXXA Exposure to other specified factors, initial encounter
CPT/HCPCS: 96374; 96375; 99282; J1100; J1200; J7030

== ENCOUNTER 2019-06-15 17:03 | Emergency (ER) | payer OTHER ==
--- NOTE | 2019-06-15 17:30 | Event Note ---
ED Screening Note Date of service: 06/15/19 Time: 17:28 ED Screening Note: This is a 29 y.o. M. that presents to the ER with generalized pruritic rash x 1 week. Taking benadryl with increasing spread. This initial assessment/diagnostic orders/clinical plan/treatment(s) is/are subject to change based on patients health status, clinical progression and re- assessment by fellow clinical providers in the ED. Further treatment and workup at subsequent clinical providers discretion. Patient/guardian urged not to elope from the ED as their condition may be serious if not clinically assessed and managed. Initial orders include:
[2019-06-15] MEDS ORDERED: BENADRYL IM ONE (20:40)
[2019-06-15] MEDS ORDERED: PEPCID PO ONE (20:40)
[2019-06-15] MEDS ORDERED: DECADRON IM ONE (20:41)
--- NOTE | 2019-06-15 21:17 | Emergency Department Report ---
ED General Adult HPI - General Chief complaint: Allergic Reaction Stated complaint: ALLERGIC REACTION Time Seen by Provider: 06/15/19 17:27 Source: patient Mode of arrival: Ambulatory Limitations: No Limitations - History of Present Illness Initial comments: 29 yo BM states that he stayed at different location close to week ago and no he has a rash present. Pt also states that he has increased itching today after eating shellfish earlier today. -: Sudden Location: chest, back, abdomen, genitals Radiation: other Severity scale (0 -10): 6 Quality: other (itching) Consistency: intermittent Improves with: none Worsens with: none Associated Symptoms: denies other symptoms Treatments Prior to Arrival: other (Benadryl) - Related Data Previous Rx's Medication Instructions Recorded Last Taken Type ALBUTEROL Inhaler (OR & NICU) 2 puff IH QID PRN #1 inhalation 03/18/19 Unknown Rx [ProAir HFA Inhaler] Azithromycin [Zithromax Z-UMANG] 250 mg PO DAILY #6 tablet 03/18/19 Unknown Rx Benzonatate [Tessalon Perles] 100 mg PO Q8HR PRN #20 capsule 03/18/19 Unknown Rx Fluticasone [Flonase] 1 spray NS QDAY #1 bottle 03/18/19 Unknown Rx predniSONE [Deltasone] 20 mg PO DAILY #5 tablet 03/18/19 Unknown Rx ALBUTEROL Inhaler (OR & NICU) 2 puff IH QID PRN #1 inhalation 03/19/19 Unknown Rx [ProAir HFA Inhaler] Prednisone [predniSONE 10 mg 10 mg PO .TAPER #1 tab.ds.pk 03/19/19 Unknown Rx (6-Day Pack, 21 Tabs)] Prednisone [predniSONE 10 mg 10 mg PO .TAPER #1 tab.ds.pk 04/27/19 Unknown Rx (6-Day Pack, 21 Tabs)] diphenhydrAMINE [Benadryl CAP] 25 mg PO Q6HR PRN #12 capsule 04/27/19 Unknown Rx Prednisone [predniSONE 10 mg 10 mg PO .TAPER #1 tab.ds.pk 05/21/19 Unknown Rx (6-Day Pack, 21 Tabs)] diphenhydrAMINE [Benadryl CAP] 25 mg PO Q6HR PRN #12 capsule 05/21/19 Unknown Rx EPINEPHrine [Epipen] 0.3 mg IM ONCE #1 auto.injct 06/15/19 Unknown Rx Permethrin 5% [Acticin 5% CREAM] 1 applicatio TP ONCE 1 Days #1 tube 06/15/19 Unknown Rx Allergies Allergy/AdvReac Type Severity Reaction Status Date / Time pecan nut Allergy Swelling Verified 06/15/19 17:03 shellfish derived Allergy Hives Verified 06/15/19 17:03 ED Review of Systems ROS: Stated complaint: ALLERGIC REACTION Other details as noted in HPI Constitutional: denies: diaphoresis, fever, malaise Eyes: denies: eye pain, eye discharge, vision change ENT: denies: ear pain, throat pain, dental pain Respiratory: denies: cough, orthopnea, shortness of breath Cardiovascular: denies: chest pain, palpitations, dyspnea on exertion Endocrine: denies: excessive sweating, flushing, intolerance to cold Gastrointestinal: denies: abdominal pain, nausea, vomiting Genitourinary: denies: urgency, dysuria, frequency Musculoskeletal: denies: back pain, joint swelling Skin: rash, pruritus Neurological: denies: headache, weakness, numbness, paresthesias Psychiatric: denies: anxiety, depression Hematological/Lymphatic: denies: easy bleeding, easy bruising, swollen glands ED Past Medical Hx - Past Medical History Hx Hypertension: No Hx CVA: No Hx Heart Attack/AMI: No Hx Congestive Heart Failure: No Hx Diabetes: No Hx Deep Vein Thrombosis: No Hx Pulmonary Embolism: No Hx GERD: No Hx Liver Disease: No Hx Renal Disease: No Hx of Cancer: No Hx Sickle Cell Disease: No Hx Arthritis: No Hx Headaches / Migraines: No Hx Psychiatric Treatment: Yes (anxiety) Hx Asthma: Yes Hx COPD: No Hx Tuberculosis: No Hx Dementia: No - Surgical History Past Surgical History?: No Additional Surgical History: as baby - Social History Smoking Status: Current Every Day Smoker Substance Use Type: Marijuana - Medications Home Medications: Home Medications Medication Instructions Recorded Confirmed Last Taken Type ALBUTEROL Inhaler (OR & NICU) 2 puff IH QID PRN #1 inhalation 03/18/19 Unknown Rx [ProAir HFA Inhaler] Azithromycin [Zithromax Z-UMANG] 250 mg PO DAILY #6 tablet 03/18/19 Unknown Rx Benzonatate [Tessalon Perles] 100 mg PO Q8HR PRN #20 capsule 03/18/19 Unknown R x Fluticasone [Flonase] 1 spray NS QDAY #1 bottle 03/18/19 Unknown Rx predniSONE [Deltasone] 20 mg PO DAILY #5 tablet 03/18/19 Unknown Rx ALBUTEROL Inhaler (OR & NICU) 2 puff IH QID PRN #1 inhalation 03/19/19 Unknown Rx [ProAir HFA Inhaler] Prednisone [predniSONE 10 mg 10 mg PO .TAPER #1 tab.ds.pk 03/19/19 Unknown Rx (6-Day Pack, 21 Tabs)] Prednisone [predniSONE 10 mg 10 mg PO .TAPER #1 tab.ds.pk 04/27/19 Unknown Rx (6-Day Pack, 21 Tabs)] diphenhydrAMINE [Benadryl CAP] 25 mg PO Q6HR PRN #12 capsule 04/27/19 Unknown Rx Prednisone [predniSONE 10 mg 10 mg PO .TAPER #1 tab.ds.pk 05/21/19 Unknown Rx (6-Day Pack, 21 Tabs)] diphenhydrAMINE [Benadryl CAP] 25 mg PO Q6HR PRN #12 capsule 05/21/19 Unknown Rx EPINEPHrine [Epipen] 0.3 mg IM ONCE #1 auto.injct 06/15/19 Unknown Rx Permethrin 5% [Acticin 5% CREAM] 1 applicatio TP ONCE 1 Days #1 tube 06/15/19 Unknown Rx ED Physical Exam - General Limitations: No Limitations General appearance: alert, in no apparent distress - Head Head exam: Present: atraumatic, normocephalic, normal inspection - Eye Eye exam: Present: normal appearance, PERRL, EOMI Pupils: Present: normal accommodation - ENT ENT exam: Present: normal exam, normal orophraynx, mucous membranes dry - Respiratory Respiratory exam: Present: normal lung sounds bilaterally, respiratory distress. Absent: wheezes, rales, rhonchi - Cardiovascular Cardiovascular Exam: Present: regular rate, normal rhythm, normal heart sounds - GI/Abdominal GI/Abdominal exam: Present: soft. Absent: distended, tenderness, guarding - Rectal Rectal exam: Present: deferred - exam: Present: normal inspection. Absent: testicular tenderness, urethral discharge External exam: Present: normal external exam - Extremities Exam Extremities exam: Present: normal inspection, full ROM. Absent: tenderness - Back Exam Back exam: Present: normal inspection, full ROM. Absent: tenderness - Neurological Exam Neurological exam: Present: alert, altered, oriented X3 - Psychiatric Psychiatric exam: Present: normal affect, normal mood - Skin Skin exam: Present: rash, other (diffus, pruritic and papular rash present on the both arms, neck, abdomen, and back) ED Course Vital Signs 06/15/19 17:28 Temperature 98.1 F Pulse Rate 102 H Respiratory 18 Rate Blood Pressure 131/71 O2 Sat by Pulse 98 Oximetry ED Medical Decision Making - Medical Decision Making 29 yo BM states that he stayed at different location close to week ago and no he has a rash present. Pt also states that he has increased itching today after eating shellfish earlier today. Pt was given prednisone, Pepcid and Benadryl in ER for his shellfish allergy. Pt stated that he will call a auto parts delivery driver due to Benadryl injection. He was informed that he may have been exposed to bed bugs/mites while sleeping in a different location than his home. He was instructed to take the medications as prescribed, wash bedding in hot water and to f/u with PCP as needed. See ER as needed. Critical care attestation.: If time is entered above; I have spent that time in minutes in the direct care of this critically ill patient, excluding procedure time. ED Disposition Clinical Impression: Shellfish allergy, Bed bug bite Disposition: DC-01 TO HOME OR SELFCARE Is pt being admited?: No Does the pt Need Aspirin: No Condition: Stable Additional Instructions: He was informed that he may have been exposed to bed bugs/mites while sleeping i n a different location than his home. He was instructed to take the medications as prescribed, wash bedding in hot water and to f/u with PCP as needed. Pt was also informed that if severe allergies arise with shellfish allergy to use Epi- pen as needed. See ER as needed as well. Prescriptions: Permethrin 5% [Acticin 5% CREAM] 1 applicatio TP ONCE 1 Days #1 tube EPINEPHrine [Epipen] 0.3 mg IM ONCE #1 auto.injct Referrals: PRIMARY CARE, [Primary Care Provider] - 3-5 Days Time of Disposition: 21:39
[2019-06-15 22:00] VITALS: BP 125/73
== END 2019-06-15 22:00 | disposition home or self-care (01) ==
LOC: ED 17:03
DX: S20.369A Insect bite (nonvenomous) of unspecified front wall of thorax, initial encounter (principal); S20.469A Insect bite (nonvenomous) of unspecified back wall of thorax, initial encounter; S30.861A Insect bite (nonvenomous) of abdominal wall, initial encounter; S30.865A Insect bite (nonvenomous) of unspecified external genital organs, male, initial encounter; F41.9 Anxiety disorder, unspecified; J45.909 Unspecified asthma, uncomplicated; F17.200 Nicotine dependence, unspecified, uncomplicated; F12.10 Cannabis abuse, uncomplicated; Z91.013 Allergy to seafood; Z91.018 Allergy to other foods; W57.XXXA Bitten or stung by nonvenomous insect and other nonvenomous arthropods, initial encounter; Y93.89 Activity, other specified; Y92.89 Other specified places as the place of occurrence of the external cause; Y99.8 Other external cause status
CPT/HCPCS: 96372; 99282; J1100; J1200

== ENCOUNTER 2019-08-21 14:56 | Emergency (ER) | payer OTHER ==
[2019-08-21 16:25] VITALS: BP 148/79
--- NOTE | 2019-08-21 16:28 | Event Note ---
ED Screening Note ED Screening Note: sore throat and ear pain for 4 days pain with swallow no drainage from the ear no fever PMHx none no daily meds no allergies to meds left otitis media right otitis externa
--- NOTE | 2019-08-21 16:33 | Emergency Department Report ---
ED General Adult HPI - General Chief complaint: Sore Throat Stated complaint: SORE THROAT Time Seen by Provider: 08/21/19 16:24 Source: patient Mode of arrival: Ambulatory Limitations: No Limitations - History of Present Illness Initial comments: pt is a 29 yo male who presents to the ED with c/o sore throat and ear pain for 4 days. he has pain with swallowing. he is tolerating his secretions and PO intake without difficulty. he denies any drainage from the ear, fever, cough, congestion, vomiting. PMHx none. no daily meds, no allergies to meds. - Related Data Previous Rx's Medication Instructions Recorded Last Taken Type ALBUTEROL Inhaler (OR & NICU) 2 puff IH QID PRN #1 inhalation 03/18/19 Unknown Rx [ProAir HFA Inhaler] Azithromycin [Zithromax Z-UMANG] 250 mg PO DAILY #6 tablet 03/18/19 Unknown Rx Benzonatate [Tessalon Perles] 100 mg PO Q8HR PRN #20 capsule 03/18/19 Unknown Rx Fluticasone [Flonase] 1 spray NS QDAY #1 bottle 03/18/19 Unknown Rx predniSONE [Deltasone] 20 mg PO DAILY #5 tablet 03/18/19 Unknown Rx ALBUTEROL Inhaler (OR & NICU) 2 puff IH QID PRN #1 inhalation 03/19/19 Unknown Rx [ProAir HFA Inhaler] Prednisone [predniSONE 10 mg 10 mg PO .TAPER #1 tab.ds.pk 03/19/19 Unknown Rx (6-Day Pack, 21 Tabs)] Prednisone [predniSONE 10 mg 10 mg PO .TAPER #1 tab.ds.pk 04/27/19 Unknown Rx (6-Day Pack, 21 Tabs)] diphenhydrAMINE [Benadryl CAP] 25 mg PO Q6HR PRN #12 capsule 04/27/19 Unknown Rx Prednisone [predniSONE 10 mg 10 mg PO .TAPER #1 tab.ds.pk 05/21/19 Unknown Rx (6-Day Pack, 21 Tabs)] diphenhydrAMINE [Benadryl CAP] 25 mg PO Q6HR PRN #12 capsule 05/21/19 Unknown Rx EPINEPHrine [Epipen] 0.3 mg IM ONCE #1 auto.injct 06/15/19 Unknown Rx Permethrin 5% [Acticin 5% CREAM] 1 applicatio TP ONCE 1 Days #1 tube 06/15/19 Unknown Rx Amoxicillin [Amoxicillin TAB] 875 mg PO BID 10 Days #20 tablet 08/21/19 Unknown Rx Neomycin/Polymyxin B/Hydrocort 4 drops AD QID 7 Days #1 solution 08/21/19 Unknown Rx [Flnevivu-Gwzagnomi-Ne Ear Soln] Allergies Allergy/AdvReac Type Severity Reaction Status Date / Time pecan nut Allergy Swelling Verified 06/15/19 17:03 shellfish derived Allergy Hives Verified 06/15/19 17:03 ED Review of Systems ROS: Stated complaint: SORE THROAT Other details as noted in HPI Comment: All other systems reviewed and negative ED Past Medical Hx - Past Medical History Hx Hypertension: No Hx CVA: No Hx Heart Attack/AMI: No Hx Congestive Heart Failure: No Hx Diabetes: No Hx Deep Vein Thrombosis: No Hx Pulmonary Embolism: No Hx GERD: No Hx Liver Disease: No Hx Renal Disease: No Hx Sickle Cell Disease: No Hx Arthritis: No Hx Headaches / Migraines: No Hx Psychiatric Treatment: Yes (anxiety) Hx Asthma: Yes Hx COPD: No Hx Tuberculosis: No Hx Dementia: No - Surgical History Additional Surgical History: as baby - Social History Smoking Status: Current Every Day Smoker Substance Use Type: None - Medications Home Medications: Home Medications Medication Instructions Recorded Confirmed Last Taken Type ALBUTEROL Inhaler (OR & NICU) 2 puff IH QID PRN #1 inhalation 03/18/19 Unknown Rx [ProAir HFA Inhaler] Azithromycin [Zithromax Z-UMANG] 250 mg PO DAILY #6 tablet 03/18/19 Unknown Rx Benzonatate [Tessalon Perles] 100 mg PO Q8HR PRN #20 capsule 03/18/19 Unknown Rx Fluticasone [Flonase] 1 spray NS QDAY #1 bottle 03/18/19 Unknown Rx predniSONE [Deltasone] 20 mg PO DAILY #5 tablet 03/18/19 Unknown Rx ALBUTEROL Inhaler (OR & NICU) 2 puff IH QID PRN #1 inhalation 03/19/19 Unknown Rx [ProAir HFA Inhaler] Prednisone [predniSONE 10 mg 10 mg PO .TAPER #1 tab.ds.pk 03/19/19 Unknown Rx (6-Day Pack, 21 Tabs)] Prednisone [predniSONE 10 mg 10 mg PO .TAPER #1 tab.ds.pk 04/27/19 Unknown Rx (6-Day Pack, 21 Tabs)] diphenhydrAMINE [Benadryl CAP] 25 mg PO Q6HR PRN #12 capsule 04/27/19 Unknown Rx Prednisone [predniSONE 10 mg 10 mg PO .TAPER #1 tab.ds.pk 05/21/19 Unknown Rx (6-Day Pack, 21 Tabs)] diphenhydrAMINE [Benadryl CAP] 25 mg PO Q6HR PRN #12 capsule 05/21/19 Unknown Rx EPINEPHrine [Epipen] 0.3 mg IM ONCE #1 auto.injct 06/15/19 Unknown Rx Permethrin 5% [Acticin 5% CREAM] 1 applicatio TP ONCE 1 Days #1 tube 06/15/19 Unknown Rx Amoxicillin [Amoxicillin TAB] 875 mg PO BID 10 Days #20 tablet 08/21/19 Unknown Rx Neomycin/Polymyxin B/Hydrocort 4 drops AD QID 7 Days #1 solution 08/21/19 Unknown Rx [Bctkiabk-Ljzigjyec-Yw Ear Soln] ED Physical Exam - General Limitations: No Limitations General appearance: alert, in no apparent distress - Head Head exam: Present: atraumatic, normocephalic - Eye Eye exam: Present: normal appearance - ENT ENT exam: Present: normal orophraynx, mucous membranes moist, other (right canal is erythematous, right TM is intact, left TM is erythematous, left canal is normal, uvula is midline, no uvular edema ) - Respiratory Respiratory exam: Present: normal lung sounds bilaterally. Absent: respiratory distress, wheezes, rales, rhonchi, stridor, chest wall tenderness, accessory muscle use, decreased breath sounds, prolonged expiratory - Cardiovascular Cardiovascular Exam: Present: regular rate, normal rhythm, normal heart sounds. Absent: systolic murmur, diastolic murmur, rubs, gallop - Neurological Exam Neurological exam: Present: alert, oriented X3 - Psychiatric Psychiatric exam: Present: normal affect, normal mood - Skin Skin exam: Present: warm, dry, intact ED Course Vital Signs 08/21/19 16:22 Temperature 98.6 F Pulse Rate 99 H Respiratory 17 Rate Blood Pressure 148/79 ED Medical Decision Making - Medical Decision Making pt is a 29 yo male who presents to the ED with c/o sore throat and ear pain for 4 days. he has pain with swallowing. he is tolerating his secretions and PO intake without difficulty. he denies any drainage from the ear, fever, cough, congestion, vomiting. PMHx none. no daily meds, no allergies to meds. VSS. on exam: normal oropharynx, right canal is erythematous, right TM is intact, left TM is erythematous, left canal is normal, uvula is midline, no uvular edema. Examination consistent with otitis externa and otitis media. Patient given prescriptions for oral antibiotics and antibiotic eardrops. advised pt to please take medication as prescribed. take tylenol or ibuprofen for any discomfort. may do warm salt water gargles, throat spray over the counter. follow up with a primary care doctor in the next 2-3 days. return to the emergency room for any new or worsening symptoms. - Differential Diagnosis pharyngitis, otitis media, otitis externa, mumps, sialoadenititis Critical care attestation.: If time is entered above; I have spent that time in minutes in the direct care of this critically ill patient, excluding procedure time. ED Disposition Clinical Impression: Pain in throat Otitis externa Qualifiers: Otitis externa type: unspecified type Chronicity: acute Laterality: right Qualified Code(s): H60.501 - Unspecified acute noninfective otitis externa, right ear Otitis media Qualifiers: Otitis media type: suppurative Chronicity: acute Laterality: left Recurrence: non-recurrent Spontaneous tympanic membrane rupture: without spontaneous rupture Qualified Code(s): H66.002 - Acute suppurative otitis media without spontaneous rupture of ear drum, left ear Disposition: DC- TO HOME OR SELFCARE Is pt being admited?: No Does the pt Need Aspirin: No Condition: Stable Instructions: Otitis Externa (ED), Otitis Media (ED) Additional Instructions: please take medication as prescribed. take tylenol or ibuprofen for any discomfort. may do warm salt water gargles, throat spray over the counter. follow up with a primary care doctor in the next 2-3 days. return to the emergency room for any new or worsening symptoms. Prescriptions: Amoxicillin [Amoxicillin TAB] 875 mg PO BID 10 Days #20 tablet Neomycin/Polymyxin B/Hydrocort [Ygjfankg-Spbbarnpb-Hg Ear Soln] 4 drops AD QID 7 Days #1 solution Referrals: RAVINDER TORRES MD [Staff Physician] - 2-3 Days [facility] [Outside] - 2-3 Days Forms: Work/School Release Form(ED) Time of Disposition: 16:30 Print Language: WOLOF
== END 2019-08-21 17:04 | disposition home or self-care (01) ==
LOC: ED 14:56
DX: H60.90 Unspecified otitis externa, unspecified ear (principal); J45.909 Unspecified asthma, uncomplicated; F17.200 Nicotine dependence, unspecified, uncomplicated; Z79.2 Long term (current) use of antibiotics; Z79.899 Other long term (current) drug therapy; Z91.010 Allergy to peanuts; Z91.013 Allergy to seafood
CPT/HCPCS: 99282

== ENCOUNTER 2019-09-22 10:45 | Emergency (ER) | payer OTHER ==
[2019-09-22 11:06] VITALS: BP 130/94
--- NOTE | 2019-09-22 11:43 | Emergency Department Report ---
Blank Doc - Documentation Documentation: 29-year-old male that presents with asthma exacerbation and cough. This initial assessment/diagnostic orders/clinical plan/treatment(s) is/are subject to change based on patient's health status, clinical progression and re- assessment by fellow clinical providers in the ED. Further treatment and workup at subsequent clinical providers discretion. Patient/guardians urged not to elope from the ED as their condition may be serious if not clinically assessed and managed. Initial orders include: 1- Patient sent to [facility] for further evaluation and treatment 2- CXR
--- NOTE | 2019-09-22 11:44 | XRay Report ---
CHEST 2 VIEWS INDICATION: productive cough with wheezing. COMPARISON: 03/19/2019 FINDINGS: Support devices: None. Heart: Within normal limits. Lungs/Pleura: No acute air space or interstitial disease. No significant pleural effusion. IMPRESSION: No acute findings. Signer Name: Steven Lambert MD Signed: 09/22/2019 11:39 AM Workstation Name: [email or web address]
[2019-09-22] MEDS ORDERED: predniSONE 20 MG TAB PO ONE (14:07)
[2019-09-22] MEDS ORDERED: IPRATROPIUM 0.02% NEBU 2.5 ML IH ONE (14:08)
[2019-09-22] MEDS ORDERED: ALBUTEROL 2.5 MG/3 ML NEBU IH ONE (14:08)
--- NOTE | 2019-09-22 14:15 | Emergency Department Report ---
- General Chief Complaint: Adult Asthma Stated Complaint: CP/ASTHMA ATTACK Time Seen by Provider: 09/22/19 11:43 Source: patient Mode of arrival: Ambulatory Limitations: No Limitations - History of Present Illness Initial Comments: 29-year-old -[place] male presents to the emergency room complaining of asthma exacerbation and cough 5 days. Patient admits to runny nose and sneezing hot and cold. He does admit to being out of his albuterol inhaler. Patient has a past medical history of asthma currently takes no medications on a daily basis and has no known drug allergies but is allergic to pecans and shellfish. MD Complaint: cough, rhinorrhea, nasal congestion Onset/Timin -: days(s) Severity: mild Consistency: constant Improves With: nothing Worsens With: nothing Associated Symptoms: chills, rhinorrhea, nasal congestion, cough Treatments Prior to Arrival: "cold medicine" - Related Data Previous Rx's Medication Instructions Recorded Last Taken Type Albuterol INH(or & Nicu Only) 2 puff IH QID PRN #1 inhalation 03/18/19 Unknown Rx [ProAir HFA Inhaler] Azithromycin [Zithromax Z-UMANG] 250 mg PO DAILY #6 tablet 03/18/19 Unknown Rx Benzonatate [Tessalon Perles] 100 mg PO Q8HR PRN #20 capsule 03/18/19 Unknown Rx Fluticasone [Flonase] 1 spray NS QDAY #1 bottle 03/18/19 Unknown Rx predniSONE [Deltasone] 20 mg PO DAILY #5 tablet 03/18/19 Unknown Rx Albuterol INH(or & Nicu Only) 2 puff IH QID PRN #1 inhalation 03/19/19 Unknown Rx [ProAir HFA Inhaler] Prednisone [predniSONE 10 mg 10 mg PO .TAPER #1 tab.ds.pk 03/19/19 Unknown Rx (6-Day Pack, 21 Tabs)] Prednisone [predniSONE 10 mg 10 mg PO .TAPER #1 tab.ds.pk 04/27/19 Unknown Rx (6-Day Pack, 21 Tabs)] diphenhydrAMINE [Benadryl CAP] 25 mg PO Q6HR PRN #12 capsule 04/27/19 Unknown Rx Prednisone [predniSONE 10 mg 10 mg PO .TAPER #1 tab.ds.pk 05/21/19 Unknown Rx (6-Day Pack, 21 Tabs)] diphenhydrAMINE [Benadryl CAP] 25 mg PO Q6HR PRN #12 capsule 05/21/19 Unknown Rx EPINEPHrine [Epipen] 0.3 mg IM ONCE #1 auto.injct 06/15/19 Unknown Rx Permethrin 5% [Acticin 5% CREAM] 1 applicatio TP ONCE 1 Days #1 tube 06/15/19 Unknown Rx Amoxicillin [Amoxicillin TAB] 875 mg PO BID 10 Days #20 tablet 08/21/19 Unknown Rx Neomycin/Polymyxin B/Hydrocort 4 drops AD QID 7 Days #1 solution 08/21/19 Unknown Rx [Mamasryf-Bypofldvj-Nq Ear Soln] Albuterol Sulfate [Proair 90 mcg IH QID PRN #1 aer.pow.ba 09/22/19 Unknown Rx Respiclick] Prednisone [predniSONE 5 mg (6-Day 5 mg PO .TAPER #1 tab.ds.pk 09/22/19 Unknown Rx Pack, 21 Tabs)] Allergies Allergy/AdvReac Type Severity Reaction Status Date / Time pecan nut Allergy Swelling Verified 06/15/19 17:03 shellfish derived Allergy Hives Verified 06/15/19 17:03 ED Review of Systems ROS: Stated complaint: CP/ASTHMA ATTACK Other details as noted in HPI Comment: All other systems reviewed and negative ED Past Medical Hx - Past Medical History Previous Medical History?: Yes Hx Hypertension: No Hx CVA: No Hx Heart Attack/AMI: No Hx Congestive Heart Failure: No Hx Diabetes: No Hx Deep Vein Thrombosis: No Hx Pulmonary Embolism: No Hx GERD: No Hx Liver Disease: No Hx Renal Disease: No Hx Sickle Cell Disease: No Hx Arthritis: No Hx Headaches / Migraines: No Hx Psychiatric Treatment: Yes (anxiety) Hx Asthma: Yes Hx COPD: No Hx Tuberculosis: No Hx Dementia: No - Surgical History Past Surgical History?: No Additional Surgical History: as baby - Social History Smoking Status: Current Every Day Smoker Substance Use Type: None - Medications Home Medications: Home Medications Medication Instructions Recorded Confirmed Last Taken Type Albuterol INH(or & Nicu Only) 2 puff IH QID PRN #1 inhalation 03/18/19 Unknown Rx [ProAir HFA Inhaler] Azithromycin [Zithromax Z-UMANG] 250 mg PO DAILY #6 tablet 03/18/19 Unknown Rx Benzonatate [Tessalon Perles] 100 mg PO Q8HR PRN #20 capsule 03/18/19 Unknown Rx Fluticasone [Flonase] 1 spray NS QDAY #1 bottle 03/18/19 Unknown Rx predniSONE [Deltasone] 20 mg PO DAILY #5 tablet 03/18/19 Unknown Rx Albuterol INH(or & Nicu Only) 2 puff IH QID PRN #1 inhalation 03/19/19 Unknown Rx [ProAir HFA Inhaler] Prednisone [predniSONE 10 mg 10 mg PO .TAPER #1 tab.ds.pk 03/19/19 Unknown Rx (6-Day Pack, 21 Tabs)] Prednisone [predniSONE 10 mg 10 mg PO .TAPER #1 tab.ds.pk 04/27/19 Unknown Rx (6-Day Pack, 21 Tabs)] diphenhydrAMINE [Benadryl CAP] 25 mg PO Q6HR PRN #12 capsule 04/27/19 Unknown Rx Prednisone [predniSONE 10 mg 10 mg PO .TAPER #1 tab.ds.pk 05/21/19 Unknown Rx (6-Day Pack, 21 Tabs)] diphenhydrAMINE [Benadryl CAP] 25 mg PO Q6HR PRN #12 capsule 05/21/19 Unknown Rx EPINEPHrine [Epipen] 0.3 mg IM ONCE #1 auto.injct 06/15/19 Unknown Rx Permethrin 5% [Acticin 5% CREAM] 1 applicatio TP ONCE 1 Days #1 tube 06/15/19 Unknown Rx Amoxicillin [Amoxicillin TAB] 875 mg PO BID 10 Days #20 tablet 08/21/19 Unknown Rx Neomycin/Polymyxin B/Hydrocort 4 drops AD QID 7 Days #1 solution 08/21/19 Unknown Rx [Ojltqsed-Mwgtwqfjt-Rh Ear Soln] Albuterol Sulfate [Proair 90 mcg IH QID PRN #1 aer.pow.ba 09/22/19 Unknown Rx Respiclick] Prednisone [predniSONE 5 mg (6-Day 5 mg PO .TAPER #1 tab.ds.pk 09/22/19 Unknown Rx Pack, 21 Tabs)] ED Physical Exam - General Limitations: No Limitations General appearance: alert, in no apparent distress - Head Head exam: Present: atraumatic, normocephalic - Eye Eye exam: Present: normal appearance - ENT ENT exam: Present: mucous membranes moist - Neck Neck exam: Present: normal inspection, full ROM. Absent: tenderness, lymphadenopathy - Respiratory Respiratory exam: Present: normal lung sounds bilaterally. Absent: respiratory distress - Cardiovascular Cardiovascular Exam: Present: regular rate, normal rhythm. Absent: systolic murmur, diastolic murmur, rubs, gallop - Back Exam Back exam: Present: normal inspection - Neurological Exam Neurological exam: Present: alert, oriented X3, normal gait - Psychiatric Psychiatric exam: Present: normal affect, normal mood - Skin Skin exam: Present: warm, dry, intact, normal color. Absent: rash ED Course Vital Signs 09/22/19 11:04 Temperature 98.4 F Pulse Rate 77 Respiratory 16 Rate Blood Pressure 130/94 O2 Sat by Pulse 97 Oximetry ED Medical Decision Making - Medical Decision Making 29-year-old -[place] male presents to the emergency room complaining of asthma exacerbation and cough 5 days. Patient admits to runny nose and sneezing hot and cold. He does admit to being out of his albuterol inhaler. Patient has a past medical history of asthma currently takes no medications on a daily basis and has no known drug allergies but is allergic to pecans and shellfish. Patient was given prednisone 60 mg Atrovent 0.5 mg albuterol 5 mg. X-rays shows no acute findings Critical care attestation.: If time is entered above; I have spent that time in minutes in the direct care of this critically ill patient, excluding procedure time. ED Disposition Clinical Impression: Asthma Disposition: DC-01 TO HOME OR SELFCARE Is pt being admited?: No Does the pt Need Aspirin: No Condition: Stable Instructions: Asthma (ED) Prescriptions: Prednisone [predniSONE 5 mg (6-Day Pack, 21 Tabs)] 5 mg PO .TAPER #1 tab.ds.pk Albuterol Sulfate [Proair Respiclick] 90 mcg IH QID PRN #1 aer.pow.ba PRN Reason: Shortness Of Breath Referrals: [facility] [Provider Group] - 3-5 Days Forms: Work/School Release Form(ED)
== END 2019-09-22 15:39 | disposition home or self-care (01) ==
LOC: ED 10:45
DX: J45.909 Unspecified asthma, uncomplicated (principal); F41.9 Anxiety disorder, unspecified; F17.200 Nicotine dependence, unspecified, uncomplicated; Z79.899 Other long term (current) drug therapy; Z91.013 Allergy to seafood; Z91.010 Allergy to peanuts
CPT/HCPCS: 71046; 94640; 99283; J7512

== ENCOUNTER 2021-03-21 16:04 | Emergency (ER) | payer OTHER ==
[2021-03-21 18:43] VITALS: BP 110/69
--- NOTE | 2021-03-21 19:29 | XRay Report ---
CHEST 2 VIEWS INDICATION / CLINICAL INFORMATION: Cough and night sweats. Headache and loss of taste. COMPARISON: 09/22/19. FINDINGS: SUPPORT DEVICES: None. HEART / MEDIASTINUM: The heart size and pulmonary vasculature are normal. LUNGS / PLEURA: No significant pulmonary or pleural abnormality. No pneumothorax. ADDITIONAL FINDINGS: No significant additional findings. IMPRESSION: No acute findings. I see no evidence of pneumonia. Signer Name: Abel Carrillo MD Signed: 03/21/2021 7:24 PM Workstation Name: [id number]
[2021-03-21] MEDS ORDERED: ACETAMINOPHEN 500 MG TAB PO ONE (20:27)
[2021-03-21] MEDS ORDERED: IBUPROFEN 600 MG TAB PO ONE (20:27)
[2021-03-21] MEDS ORDERED: ONDANSETRON 4 MG ODT TAB PO ONE (20:27)
--- NOTE | 2021-03-21 20:34 | Emergency Department Report ---
- General Chief Complaint: Dyspnea/Respdistress Stated Complaint: FLU SYM Source: patient Mode of arrival: Ambulatory Limitations: No Limitations - History of Present Illness Initial Comments: Patient is a 31-year-old -Portuguese male with history of asthma and anxiety presents to the ED with complaint of acute onset persistent diffuse body aches and pains, nasal and sinus congestion, frontal sinus pressure, persistent dry cough with chills and lack of appetite for the last 5 days. Patient states that he is on sister tested positive for COVID-19 viral infection 2 days ago. Patient states that in the last 12 hours he symptoms have worsened. Patient denies dizziness, syncope, chest pain or shortness of breath, sore throat, nausea, vomiting, diarrhea, dysuria, urinary frequency and urgency, back pain, abdominal pain, change in vision or testicular pain. MD Complaint: cough, rhinorrhea, nasal congestion, sinus pain, other -: Sudden (Diffuse body aches and pains), days(s) (5) Severity scale (0 -10): 8 Quality: sharp, aching Consistency: constant Improves With: nothing Worsens With: nothing Context: sick contacts Associated Symptoms: denies other symptoms, chills, myalgias, headache, rhinorrhea, nasal congestion, cough. denies: diaphoresis, sore throat, stiff neck, chest pain, shortness of breath, abdominal pain, nausea, vomiting, diarrhea, dysuria, rash, confusion, right sweats, weight loss, epistaxis, hoarseness, ear pain, other Treatments Prior to Arrival: none - Related Data Previous Rx's Medication Instructions Recorded Last Taken Type Albuterol Mdi (or & Nicu Only) 2 puff IH QID PRN #1 inhalation 03/18/19 Unknown Rx [ProAir HFA Inhaler] Azithromycin [Zithromax Z-UMANG] 250 mg PO DAILY #6 tablet 03/18/19 Unknown Rx Fluticasone [Flonase] 1 spray NS QDAY #1 bottle 03/18/19 Unknown Rx predniSONE [Deltasone] 20 mg PO DAILY #5 tablet 03/18/19 Unknown Rx Albuterol Mdi (or & Nicu Only) 2 puff IH QID PRN #1 inhalation 03/19/19 Unknown Rx [ProAir HFA Inhaler] Prednisone [predniSONE 10 mg 10 mg PO .TAPER #1 tab.ds.pk 03/19/19 Unknown Rx (6-Day Pack, 21 Tabs)] Prednisone [predniSONE 10 mg 10 mg PO .TAPER #1 tab.ds.pk 04/27/19 Unknown Rx (6-Day Pack, 21 Tabs)] diphenhydrAMINE [Benadryl CAP] 25 mg PO Q6HR PRN #12 capsule 04/27/19 Unknown Rx Prednisone [predniSONE 10 mg 10 mg PO .TAPER #1 tab.ds.pk 05/21/19 Unknown Rx (6-Day Pack, 21 Tabs)] diphenhydrAMINE [Benadryl CAP] 25 mg PO Q6HR PRN #12 capsule 05/21/19 Unknown Rx EPINEPHrine [Epipen] 0.3 mg IM ONCE #1 auto.injct 06/15/19 Unknown Rx Permethrin 5% [Acticin 5% CREAM] 1 applicatio TP ONCE 1 Days #1 tube 06/15/19 Unknown Rx Amoxicillin [Amoxicillin TAB] 875 mg PO BID 10 Days #20 tablet 08/21/19 Unknown Rx Neomycin/Polymyxin B/Hydrocort 4 drops AD QID 7 Days #1 solution 08/21/19 Unknown Rx [Svaahffv-Bkyccaaae-Iu Ear Soln] Albuterol Sulfate [Proair 90 mcg IH QID PRN #1 aer.pow.ba 09/22/19 Unknown Rx Respiclick] Prednisone [predniSONE 5 mg (6-Day 5 mg PO .TAPER #1 tab.ds.pk 09/22/19 Unknown Rx Pack, 21 Tabs)] Acetaminophen [Tylenol] 500 mg PO Q6HR PRN #30 tablet 03/21/21 Unknown Rx Ascorbic Acid [Vitamin C] 1,000 mg PO Q12H #40 tablet 03/21/21 Unknown Rx Benzonatate [Tessalon Perles] 100 mg PO Q8HR PRN #20 capsule 03/21/21 Unknown Rx Ondansetron [Zofran Odt] 4 mg PO Q8HR PRN #15 tab.rapdis 03/21/21 Unknown Rx Zinc [Zinc 50mg TAB] 50 mg PO DAILY #30 tablet 03/21/21 Unknown Rx Allergies Allergy/AdvReac Type Severity Reaction Status Date / Time pecan nut Allergy Swelling Verified 06/15/19 17:03 shellfish derived Allergy Hives Verified 06/15/19 17:03 ED Review of Systems ROS: Stated complaint: FLU SYM Other details as noted in HPI Constitutional: denies: chills, fever Eyes: denies: eye pain, eye discharge, vision change ENT: congestion, other (Frontal sinus pressure). denies: ear pain, throat pain Respiratory: cough. denies: shortness of breath, wheezing Cardiovascular: denies: chest pain, palpitations Endocrine: no symptoms reported Gastrointestinal: denies: abdominal pain, nausea, vomiting, diarrhea Genitourinary: denies: urgency, dysuria Musculoskeletal: arthralgia, myalgia. denies: back pain, joint swelling Skin: denies: rash, lesions Neurological: headache. denies: weakness, paresthesias Psychiatric: denies: anxiety, depression Hematological/Lymphatic: denies: easy bleeding, easy bruising ED Past Medical Hx - Past Medical History Previous Medical History?: Yes Hx Hypertension: No Hx CVA: No Hx Heart Attack/AMI: No Hx Congestive Heart Failure: No Hx Diabetes: No Hx Deep Vein Thrombosis: No Hx Pulmonary Embolism: No Hx GERD: No Hx Liver Disease: No Hx Renal Disease: No Hx Sickle Cell Disease: No Hx Arthritis: No Hx Headaches / Migraines: No Hx Psychiatric Treatment: Yes (anxiety) Hx Asthma: Yes Hx COPD: No Hx Tuberculosis: No Hx Dementia: No - Surgical History Additional Surgical History: as baby - Social History Smoking Status: Current Every Day Smoker Substance Use Type: None - Medications Home Medications: Home Medications Medication Instructions Recorded Confirmed Last Taken Type Albuterol Mdi (or & Nicu Only) 2 puff IH QID PRN #1 inhalation 03/18/19 Unknown Rx [ProAir HFA Inhaler] Azithromycin [Zithromax Z-UMANG] 250 mg PO DAILY #6 tablet 03/18/19 Unknown Rx Fluticasone [Flonase] 1 spray NS QDAY #1 bottle 03/18/19 Unknown Rx predniSONE [Deltasone] 20 mg PO DAILY #5 tablet 03/18/19 Unknown Rx Albuterol Mdi (or & Nicu Only) 2 puff IH QID PRN #1 inhalation 03/19/19 Unknown Rx [ProAir HFA Inhaler] Prednisone [predniSONE 10 mg 10 mg PO .TAPER #1 tab.ds.pk 03/19/19 Unknown Rx (6-Day Pack, 21 Tabs)] Prednisone [predniSONE 10 mg 10 mg PO .TAPER #1 tab.ds.pk 04/27/19 Unknown Rx (6-Day Pack, 21 Tabs)] diphenhydrAMINE [Benadryl CAP] 25 mg PO Q6HR PRN #12 capsule 04/27/19 Unknown Rx Prednisone [predniSONE 10 mg 10 mg PO .TAPER #1 tab.ds.pk 05/21/19 Unknown Rx (6-Day Pack, 21 Tabs)] diphenhydrAMINE [Benadryl CAP] 25 mg PO Q6HR PRN #12 capsule 05/21/19 Unknown Rx EPINEPHrine [Epipen] 0.3 mg IM ONCE #1 auto.injct 06/15/19 Unknown Rx Permethrin 5% [Acticin 5% CREAM] 1 applicatio TP ONCE 1 Days #1 tube 06/15/19 Unknown Rx Amoxicillin [Amoxicillin TAB] 875 mg PO BID 10 Days #20 tablet 08/21/19 Unknown Rx Neomycin/Polymyxin B/Hydrocort 4 drops AD QID 7 Days #1 solution 08/21/19 Unknown Rx [Ifnasuum-Bllbhxbkb-Gc Ear Soln] Albuterol Sulfate [Proair 90 mcg IH QID PRN #1 aer.pow.ba 09/22/19 Unknown Rx Respiclick] Prednisone [predniSONE 5 mg (6-Day 5 mg PO .TAPER #1 tab.ds.pk 09/22/19 Unknown Rx Pack, 21 Tabs)] Acetaminophen [Tylenol] 500 mg PO Q6HR PRN #30 tablet 03/21/21 Unknown Rx Ascorbic Acid [Vitamin C] 1,000 mg PO Q12H #40 tablet 03/21/21 Unknown Rx Benzonatate [Tessalon Perles] 100 mg PO Q8HR PRN #20 capsule 03/21/21 Unknown Rx Ondansetron [Zofran Odt] 4 mg PO Q8HR PRN #15 tab.rapdis 03/21/21 Unknown Rx Zinc [Zinc 50mg TAB] 50 mg PO DAILY #30 tablet 03/21/21 Unknown Rx ED Physical Exam - General Limitations: No Limitations General appearance: alert, in no apparent distress - Head Head exam: Present: atraumatic, normocephalic, normal inspection - Eye Eye exam: Present: normal appearance, PERRL, EOMI Pupils: Present: normal accommodation - ENT ENT exam: Present: normal orophraynx, mucous membranes moist, TM's normal bilaterally, normal external ear exam, other (Grossly congested nasal passages) - Neck Neck exam: Present: normal inspection, full ROM. Absent: tenderness - Respiratory Respiratory exam: Present: normal lung sounds bilaterally. Absent: respiratory distress, wheezes, rales, rhonchi, chest wall tenderness, accessory muscle use, decreased breath sounds, prolonged expiratory - Cardiovascular Cardiovascular Exam: Present: regular rate, normal rhythm, normal heart sounds. Absent: systolic murmur, diastolic murmur, rubs, gallop - GI/Abdominal GI/Abdominal exam: Present: soft, normal bowel sounds. Absent: tenderness, guarding, hyperactive bowel sounds, hypoactive bowel sounds, organomegaly, mass - Extremities Exam Extremities exam: Present: normal inspection, full ROM, normal capillary refill - Back Exam Back exam: Present: normal inspection, full ROM. Absent: tenderness, CVA tenderness (R), CVA tenderness (L), muscle spasm, paraspinal tenderness - Neurological Exam Neurological exam: Present: alert, oriented X3, CN II-XII intact, normal gait, reflexes normal - Psychiatric Psychiatric exam: Present: normal affect, normal mood - Skin Skin exam: Present: warm, dry, intact, normal color. Absent: rash ED Course Vital Signs 03/21/21 18:42 Temperature 98.4 F Pulse Rate 92 H Respiratory 20 Rate Blood Pressure 110/69 [Right] O2 Sat by Pulse 97 Oximetry ED Medical Decision Making - Radiology Data Radiology results: report reviewed, image reviewed [address] [address] XRay Report Signed Patient: JARETT MUNGUIA MR#: [id number] : 1990 Acct:[id number] Age/Sex: 31 / M ADM Date: 03/21/21 Loc: ED Attending Dr: Ordering Physician: DORA IVORY Date of Service: 03/21/21 Procedure(s): XR chest routine 2V Accession Number(s): [id number] cc: DORA IVORY Fluoro Time In Minutes: CHEST 2 VIEWS INDICATION / CLINICAL INFORMATION: Cough and night sweats. Headache and loss of taste. COMPARISON: 09/22/19. FINDINGS: SUPPORT DEVICES: None. HEART / MEDIASTINUM: The heart size and pulmonary vasculature are normal. LUNGS / PLEURA: No significant pulmonary or pleural abnormality. No pneumothorax. ADDITIONAL FINDINGS: No significant additional findings. IMPRESSION: No acute findings. I see no evidence of pneumonia. Signer Name: Abel Carrillo MD Signed: 03/21/2021 7:24 PM Workstation Name: [id number] Transcribed By: RT Dictated By: Abel Carrillo MD Electronically Authenticated By: Abel Carrillo MD Signed Date/Time: 03/21/211923 DD/ 23 TD/TT: - Medical Decision Making This is a 31-year-old -Portuguese male with history of asthma and anxiety presents to the ED with complaint of acute onset persistent diffuse body aches and pains, nasal and sinus congestion, frontal sinus pressure, persistent dry cough with chills and lack of appetite for the last 5 days. Patient states that he is on sister tested positive for COVID-19 viral infection 2 days ago. Patient states that in the last 12 hours his symptoms have worsened. Patient states that he never received COVID-19 vaccination prior to the onset of the symptoms, and that no one else at home received the vaccine. In the ED, patient is alert and oriented x3 and is not in any distress with normal vital signs. Patient was treated for pain in the ED. At the time of the patient's discharge, he was alert and oriented x3, ambulatory in the ED with no difficulty and oxygen saturation is 99% in room air. Patient was discharged home on medications and advised to get tested for Covid19 outpatient, take medications and self quarantine for 10 days for suspected COVID-19 viral infection. Patient advised return to the ED immediately if symptoms get worse. - Differential Diagnosis Covid19; Bronchitis; URI; Pneumonia; Sinusitis Critical care attestation.: If time is entered above; I have spent that time in minutes in the direct care of this critically ill patient, excluding procedure time. ED Disposition Clinical Impression: Acute upper respiratory infection, Suspected 2019-nCoV infection, Acute bronchitis with asthma Disposition: - TO HOME OR SELFCARE Is pt being admited?: No Does the pt Need Aspirin: No Condition: Stable Instructions: Acute Bronchitis (ED), Upper Respiratory Infection, Adult, [id number], Cough, Adult, [id number], Acute Bronchitis, Adult, [id number], Prevent the Spread of COVID-19 if You Are Sick - CDC, COVID-19 Frequently Asked Questions Additional Instructions: Chest x-ray showed no acute cardiopulmonary abnormalities or pneumonitis. Your symptoms are likely due to upper respiratory infection suspected to be due to COVID-19 viral infection due to your recent exposure and risk factors. It is therefore advisable that you get tested for COVID-19 viral infection in any of the outpatient clinics. If positive for COVID-19 viral infection, then observe strict self quarantine for 10 days while taking medications. Drink plenty of fluids but return to the ED immediately if your symptoms get worse. Prescriptions: Acetaminophen [Tylenol] 500 mg PO Q6HR PRN #30 tablet PRN Reason: Pain , Severe (7-10) Benzonatate [Tessalon Perles] 100 mg PO Q8HR PRN #20 capsule PRN Reason: Cough Ascorbic Acid [Vitamin C] 1,000 mg PO Q12H #40 tablet Zinc [Zinc 50mg TAB] 50 mg PO DAILY #30 tablet Ondansetron [Zofran Odt] 4 mg PO Q8HR PRN #15 tab.rapdis PRN Reason: Nausea Referrals: [facility] [Provider Group] - 7-10 days Forms: Work/School Release Form(ED) Time of Disposition: 20:39 Print Language: GERMAN
== END 2021-03-21 21:20 | disposition home or self-care (01) ==
LOC: ED 16:04
DX: J20.9 Acute bronchitis, unspecified (principal); J45.909 Unspecified asthma, uncomplicated; F17.200 Nicotine dependence, unspecified, uncomplicated; Z03.818 Encounter for observation for suspected exposure to other biological agents ruled out
CPT/HCPCS: 71046; 99283; Q0162

== ENCOUNTER 2021-10-05 05:31 | Emergency (ER) | payer OTHER ==
[2021-10-05] MEDS ORDERED: ASPIRIN 325 MG TAB PO ONE (06:23)
--- NOTE | 2021-10-05 06:55 | XRay Report ---
CHEST 2 VIEWS INDICATION / CLINICAL INFORMATION: chest pain and cough. COMPARISON: Chest x-ray 03/21/2021 FINDINGS: SUPPORT DEVICES: None. HEART / MEDIASTINUM: No significant abnormality. LUNGS / PLEURA: No significant pulmonary or pleural abnormality. No pneumothorax. ADDITIONAL FINDINGS: No significant additional findings. Prior cholecystectomy. IMPRESSION: 1. No active cardiopulmonary disease. Signer Name: Neeraj Corley II, MD Signed: 10/05/2021 6:50 AM Workstation Name: [id number]
[2021-10-05 08:12] LABS: Basophils % (Auto) 0.8 % (0.0-1.8); Eosinophils # (Auto) 0.3 K/mm3 (0.0-0.4); Eosinophils % (Auto) 7.7 % (0.0-4.3); Hematocrit 37.7 % (35.5-45.6); Hemoglobin 11.8 gm/dl (11.8-15.2); Lymphocytes # (Auto) 1.3 K/mm3 (1.2-5.4); Mean Corpuscular HGB Conc 31 % (32-34); Mean Corpuscular Volume 95 fl (84-94); Monocytes # (Auto) 0.3 K/mm3 (0.0-0.8); Monocytes % (Auto) 7.2 % (0.0-7.3); Platelet Count 145 K/mm3 (140-440); Red Blood Count 3.97 M/mm3 (3.65-5.03); Red Cell Distribution Width 14.2 % (13.2-15.2)
[2021-10-05 08:35] LABS: Alanine Aminotransferase 16 units/L (7-56); Albumin 4.1 g/dL (3.9-5); BUN/Creatinine Ratio 10; Blood Urea Nitrogen 8 mg/dL (9-20); Calcium 8.7 mg/dL (8.4-10.2); Hemolysis Index 9
[2021-10-05] MEDS ORDERED: ALBUTEROL 2.5 MG/3 ML NEBU IH ONE (08:50)
[2021-10-05] MEDS ORDERED: predniSONE 20 MG TAB PO ONE (08:50)
--- NOTE | 2021-10-05 08:52 | Emergency Department Report ---
Minor Respiratory - HPI Chief Complaint: Chest Pain Stated Complaint: CHEST PAIN/COUGH Time Seen by Provider: 10/05/21 08:49 Duration: Today Pain Location: Chest Severity: mild Minor Respiratory: Yes Able to Tolerate Fluids, No Rhinorrhea, No Sore Throat, No Ear Pain, No Cough, No Sick Contacts, No Hemoptysis, No Chest Pain, No Shortness of Breath, No Fever Other History: 31 YO COMES TO ER CO CHEST PAIN- DUE TO ASTHMA AE AND BEING OUT OF MEDS. HAS NOT BEEN ABLE TO GET MEDS DUE TO FINANCES. USUALLY SEEN AT [place]. NO FEVER OR CHILLS. NO SPUTUM. NO SOB. AMBULATORY AND NON ILL APPEARING ON EXAM. ED Review of Systems ROS: Stated complaint: CHEST PAIN/COUGH Other details as noted in HPI Comment: All other systems reviewed and negative ED Past Medical Hx - Past Medical History Previous Medical History?: Yes Hx Hypertension: No Hx CVA: No Hx Heart Attack/AMI: No Hx Congestive Heart Failure: No Hx Diabetes: No Hx Deep Vein Thrombosis: No Hx Pulmonary Embolism: No Hx GERD: No Hx Liver Disease: No Hx Renal Disease: No Hx Sickle Cell Disease: No Hx Arthritis: No Hx Headaches / Migraines: No Hx Psychiatric Treatment: Yes (anxiety) Hx Asthma: Yes Hx COPD: No Hx Tuberculosis: No Hx Dementia: No Hx HIV: Yes - Surgical History Past Surgical History?: Yes Hx Cholecystectomy: Yes Additional Surgical History: as baby - Family History Family history: no significant - Social History Smoking Status: Current Every Day Smoker Substance Use Type: None - Medications Home Medications: Home Medications Medication Instructions Recorded Confirmed Last Taken Type Albuterol Mdi (or & Nicu Only) 2 puff IH QID PRN #1 inhalation 03/18/19 Unknown Rx [ProAir HFA Inhaler] Azithromycin [Zithromax Z-UMANG] 250 mg PO DAILY #6 tablet 03/18/19 Unknown Rx Fluticasone [Flonase] 1 spray NS QDAY #1 bottle 03/18/19 Unknown Rx predniSONE [Deltasone] 20 mg PO DAILY #5 tablet 03/18/19 Unknown Rx Albuterol Mdi (or & Nicu Only) 2 puff IH QID PRN #1 inhalation 03/19/19 Unknown Rx [ProAir HFA Inhaler] Prednisone [predniSONE 10 mg 10 mg PO .TAPER #1 tab.ds.pk 03/19/19 Unknown Rx (6-Day Pack, 21 Tabs)] Prednisone [predniSONE 10 mg 10 mg PO .TAPER #1 tab.ds.pk 04/27/19 Unknown Rx (6-Day Pack, 21 Tabs)] diphenhydrAMINE [Benadryl CAP] 25 mg PO Q6HR PRN #12 capsule 04/27/19 Unknown Rx Prednisone [predniSONE 10 mg 10 mg PO .TAPER #1 tab.ds.pk 05/21/19 Unknown Rx (6-Day Pack, 21 Tabs)] diphenhydrAMINE [Benadryl CAP] 25 mg PO Q6HR PRN #12 capsule 05/21/19 Unknown Rx EPINEPHrine [Epipen] 0.3 mg IM ONCE #1 auto.injct 06/15/19 Unknown Rx Permethrin 5% [Acticin 5% CREAM] 1 applicatio TP ONCE 1 Days #1 tube 06/15/19 Unknown Rx Amoxicillin [Amoxicillin TAB] 875 mg PO BID 10 Days #20 tablet 08/21/19 Unknown Rx Neomycin/Polymyxin B/Hydrocort 4 drops AD QID 7 Days #1 solution 08/21/19 Unknown Rx [Yffbsddu-Nioedishx-Se Ear Soln] Albuterol Sulfate [Proair 90 mcg IH QID PRN #1 aer.pow.ba 09/22/19 Unknown Rx Respiclick] Prednisone [predniSONE 5 mg (6-Day 5 mg PO .TAPER #1 tab.ds.pk 09/22/19 Unknown Rx Pack, 21 Tabs)] Acetaminophen [Tylenol] 500 mg PO Q6HR PRN #30 tablet 03/21/21 Unknown Rx Ascorbic Acid [Vitamin C] 1,000 mg PO Q12H #40 tablet 03/21/21 Unknown Rx Benzonatate [Tessalon Perles] 100 mg PO Q8HR PRN #20 capsule 03/21/21 Unknown Rx Ondansetron [Zofran Odt] 4 mg PO Q8HR PRN #15 tab.rapdis 03/21/21 Unknown Rx Zinc [Zinc 50mg TAB] 50 mg PO DAILY #30 tablet 03/21/21 Unknown Rx ALBUTEROL NEB's [Proventil 0.083% 2.5 mg IH TID PRN #1 box 10/05/21 Unknown Rx NEBS] Albuterol Mdi (or & Nicu Only) 2 puff IH QID PRN #1 inhalation 10/05/21 Unknown Rx [ProAir HFA Inhaler] Cetirizine HCl [ZyrTEC] 10 mg PO DAILY #30 capsule 10/05/21 Unknown Rx predniSONE [Deltasone] 20 mg PO DAILY #5 tablet 10/05/21 Unknown Rx Minor Respiratory Exam - Exam General: Vital signs noted. No distress. Alert and acting appropriately. HEENT: Yes Moist Mucous Membranes, No Pharyngeal Erythema, No Pharyngeal Exudates, No Rhinorrhea, No Conjuctival Injection, No Frontal Tenderness, No Maxillary Tenderness Ear: Neither TM Bulge, Neither TM Erythema, Neither EAC Pain, Neither EAC Discharge Neck: Yes Supple, No Adenopathy Lungs: Yes Good Air Exchange, Yes Wheezes, No Ronchi, No Stridor, No Cough, No Labored Respirations, No Retractions, No Use of Accessory Muscles, No Other Abnormal Lung Sounds Heart: Yes Regular, No Murmur Abdomen: Yes Normal Bowel Sounds, No Tenderness, No Peritoneal Signs Skin: No Rash, No Edema Neurologic: Alert and oriented, no deficits. Musculoskeletal: Unremarkable. ED Medical Decision Making - Lab Data Result diagrams: 10/05/21 07:28 10/05/21 07:28 - Radiology Data Radiology results: report reviewed, image reviewed [facility] - Medical Decision Making Lab Results 10/05/21 10/05/21 Range/Units 07:28 07:28 WBC 4.0 L (4.5-11.0) K/mm3 RBC 3.97 (3.65-5.03) M/mm3 Hgb 11.8 (11.8-15.2) gm/dl Hct 37.7 (35.5-45.6) % MCV 95 H (84-94) fl MCH 30 (28-32) pg MCHC 31 L (32-34) % RDW 14.2 (13.2-15.2) % Plt Count 145 (140-440) K/mm3 Lymph % (Auto) 34.0 (13.4-35.0) % Milam % (Auto) 7.2 (0.0-7.3) % Eos % (Auto) 7.7 H (0.0-4.3) % Baso % (Auto) 0.8 (0.0-1.8) % Lymph # (Auto) 1.3 (1.2-5.4) K/mm3 Milam # (Auto) 0.3 (0.0-0.8) K/mm3 Eos # (Auto) 0.3 (0.0-0.4) K/mm3 Baso # (Auto) 0.0 (0.0-0.1) K/mm3 Seg Neutrophils % 50.3 (40.0-70.0) % Seg Neutrophils # 2.0 (1.8-7.7) K/mm3 Sodium 139 (137-145) mmol/L Potassium 4.3 (3.6-5.0) mmol/L Chloride 106.7 (98-107) mmol/L Carbon Dioxide 23 (22-30) mmol/L Anion Gap 14 mmol/L BUN 8 L (9-20) mg/dL Creatinine 0.8 (0.8-1.3) mg/dL Estimated GFR > 60 ml/min BUN/Creatinine Ratio 10 % Glucose 94 (75-100) mg/dL Calcium 8.7 (8.4-10.2) mg/dL Total Bilirubin 0.60 (0.1-1.2) mg/dL AST 12 (5-40) units/L ALT 16 (7-56) units/L Alkaline Phosphatase 73 (35-129) units/L Troponin T < 0.010 (0.00-0.029) ng/mL Total Protein 6.8 (6.3-8.2) g/dL Albumin 4.1 (3.9-5) g/dL Albumin/Globulin Ratio 1.5 % VS NORMAL DOCUMENED MANUALLY BY RN LABS NOTED WBC N XRAY NAP DUONEB AND PREDNISONE GIVEN WITH IMPROVEMENT TAKING PO AMBULATORY WITH NO SOB. DC HOME WITH DC PLAN OF CARE INCLUDING DIET, ACTIVITY, MEDS AND FOLLOW UP. PT VERBALIZES UNDERSTANDING OF PLAN OF CARE - Differential Diagnosis RO PNA; URI; ASTHMA AE/WITH OR WITHOUT INFECTION Critical care attestation.: If time is entered above; I have spent that time in minutes in the direct care of this critically ill patient, excluding procedure time. ED Disposition Clinical Impression: Asthma with acute exacerbation Qualifiers: Asthma severity: mild Asthma persistence: intermittent Qualified Code(s): J45.21 - Mild intermittent asthma with (acute) exacerbation Disposition: HOME / SELF CARE / HOMELESS Is pt being admited?: No Does the pt Need Aspirin: No Condition: Stable Instructions: Asthma, Adult Additional Instructions: MEDS ORDERED FOLLOW UP WITH PCP NEXT WEEK REFERRAL BELOW DIET AND ACTIVITY TOLERATED Prescriptions: predniSONE [Deltasone] 20 mg PO DAILY #5 tablet Albuterol Mdi (or & Nicu Only) [ProAir HFA Inhaler] 2 puff IH QID PRN #1 inhalation PRN Reason: Shortness Of Breath ALBUTEROL NEB's [Proventil 0.083% NEBS] 2.5 mg IH TID PRN #1 box PRN Reason: Wheezing Cetirizine HCl [ZyrTEC] 10 mg PO DAILY #30 capsule Referrals: PRIMARY CAREMD [Primary Care Provider] - 3-5 Days RAVINDER TORRES MD [Staff Physician] - 3-5 Days Time of Disposition: 08:51
[2021-10-05] MEDS ORDERED: ASPIRIN 325 MG TAB ONE (09:30)
[2021-10-05 10:18] VITALS: BP 135/77
--- NOTE | 2021-10-06 09:30 | Electrocardiograph Report ---
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
== END 2021-10-05 09:53 | disposition home or self-care (01) ==
LOC: ED 05:31
DX: J45.901 Unspecified asthma with (acute) exacerbation (principal); F17.200 Nicotine dependence, unspecified, uncomplicated; Z90.49 Acquired absence of other specified parts of digestive tract; F41.9 Anxiety disorder, unspecified
CPT/HCPCS: 36415; 71046; 80053; 84484; 85025; 93005; 93010; 94640; 99283

== ENCOUNTER 2021-10-11 06:37 | Emergency (ER) | payer OTHER ==
[2021-10-11] MEDS ORDERED: ALBUTEROL 2.5 MG/3 ML NEBU IH ONE (07:41)
[2021-10-11] MEDS ORDERED: methylPREDNISolone Sod Succinate 125 MG/2 ML INJ IM ONE (07:41)
[2021-10-11] MEDS ORDERED: LIDOCAINE-MPF (1%) 10 MG/1 ML VIAL 5 ML INFILTRATI ONE (07:42)
--- NOTE | 2021-10-11 07:42 | Emergency Department Report ---
Minor Respiratory - HPI Chief Complaint: Dyspnea/Respdistress Stated Complaint: SOB/CHEST PAIN Time Seen by Provider: 10/11/21 07:40 Pain Location: Chest Severity: mild Minor Respiratory: Yes Able to Tolerate Fluids, Yes Cough, Yes Shortness of Breath, No Rhinorrhea, No Sore Throat, No Ear Pain, No Sick Contacts, No Hemoptysis, No Chest Pain, No Fever Other History: 31 yo male known to us comes in with wheezing. He has a/c asthma. Seen here recently but did not get meds filled. Did not follow up with pcp. no sob. no cp. no fever or chills. non productive cough. ED Review of Systems ROS: Stated complaint: SOB/CHEST PAIN Other details as noted in HPI Comment: All other systems reviewed and negative ED Past Medical Hx - Past Medical History Previous Medical History?: Yes Hx Hypertension: No Hx CVA: No Hx Heart Attack/AMI: No Hx Congestive Heart Failure: No Hx Diabetes: No Hx Deep Vein Thrombosis: No Hx Pulmonary Embolism: No Hx GERD: No Hx Liver Disease: No Hx Renal Disease: No Hx Sickle Cell Disease: No Hx Arthritis: No Hx Headaches / Migraines: No Hx Psychiatric Treatment: Yes (anxiety) Hx Asthma: Yes Hx COPD: No Hx Tuberculosis: No Hx Dementia: No Hx HIV: Yes Additional medical history: TRANSGENEDER. MED NON ADHERENCE - Surgical History Past Surgical History?: Yes Hx Cholecystectomy: Yes Additional Surgical History: as baby - Family History Family history: no significant - Social History Smoking Status: Current Every Day Smoker Substance Use Type: None - Medications Home Medications: Home Medications Medication Instructions Recorded Confirmed Last Taken Type Fluticasone [Flonase] 1 spray NS QDAY #1 bottle 03/18/19 Unknown Rx ALBUTEROL NEB's [Proventil 0.083% 2.5 mg IH TID PRN #1 box 10/05/21 Unknown Rx NEBS] Albuterol Mdi (or & Nicu Only) 2 puff IH QID PRN #1 inhalation 10/05/21 Unknown Rx [ProAir HFA Inhaler] Cetirizine HCl [ZyrTEC] 10 mg PO DAILY #30 capsule 10/05/21 Unknown Rx predniSONE [Deltasone] 20 mg PO DAILY #5 tablet 10/05/21 Unknown Rx Azithromycin [Zithromax Z-UMANG] 250 mg PO DAILY #6 tablet 10/11/21 Unknown Rx Benzonatate [Tessalon Perles] 100 mg PO Q8HR PRN #20 capsule 10/11/21 Unknown Rx predniSONE [Deltasone] 20 mg PO DAILY #5 tablet 10/11/21 Unknown Rx Minor Respiratory Exam - Exam General: Vital signs noted. No distress. Alert and acting appropriately. HEENT: Yes Moist Mucous Membranes, No Pharyngeal Erythema, No Pharyngeal Exudates, No Rhinorrhea, No Conjuctival Injection, No Frontal Tenderness, No Maxillary Tenderness Ear: Neither TM Bulge, Neither TM Erythema, Neither EAC Pain, Neither EAC Discharge Neck: Yes Supple, No Adenopathy Lungs: Yes Good Air Exchange, Yes Wheezes, No Ronchi, No Stridor, No Cough, No Labored Respirations, No Retractions, No Use of Accessory Muscles, No Other Abnormal Lung Sounds Heart: Yes Regular, No Murmur Abdomen: Yes Normal Bowel Sounds, No Tenderness, No Peritoneal Signs Skin: No Rash, No Edema Neurologic: Alert and oriented, no deficits. Musculoskeletal: Unremarkable. ED Course Vital Signs 10/11/21 07:33 Temperature 98.5 F Pulse Rate 73 Respiratory 16 Rate Blood Pressure 126/76 O2 Sat by Pulse 95 Oximetry ED Medical Decision Making - Medical Decision Making Vital Signs 10/11/21 07:33 Temperature 98.5 F Pulse Rate 73 Respiratory 16 Rate Blood Pressure 126/76 O2 Sat by Pulse 95 Oximetry DUONEB/SOLUMEDROL/ ROCEPHIN IN ER SAT 100 PER MARGARET CHECK SP MEDS KNOWN TO MARGARET HERE LAST WEEK NOT TAKING MEDS NOT FOLLOWING UP EDUCATED ON POST ER CARE- GIVEN PCP REFERRAL [facility] AND IS RECEIVING [facility] PART GENDER CHANGE- HAS BEEN ON 3 YEARS DOES NOT LIKE TO TALK ABOUT EITHER OF THESE ISSUES DC HOME WITH DC PLAN OF CARE AND PCP FOLLOW UP. VERBALIZES UNDERSTANDING - Differential Diagnosis A/C ASTHMA; MED NON ADHERENCE Critical care attestation.: If time is entered above; I have spent that time in minutes in the direct care of this critically ill patient, excluding procedure time. ED Disposition Clinical Impression: Bronchitis, Non-adherence to medical treatment, Transgender man on hormone therapy, Hx of human immunodeficiency virus infection Asthma with acute exacerbation Qualifiers: Asthma severity: mild Asthma persistence: persistent Qualified Code(s): J45.31 - Mild persistent asthma with (acute) exacerbation Disposition: HOME / SELF CARE / HOMELESS Is pt being admited?: No Does the pt Need Aspirin: No Condition: Stable Instructions: Asthma, Adult, Chronic Bronchitis (ED) Additional Instructions: FOLLOW UP WITH PCP REFERRAL BELOW MEDS ORDERED TODAY Prescriptions: predniSONE [Deltasone] 20 mg PO DAILY #5 tablet Benzonatate [Tessalon Perles] 100 mg PO Q8HR PRN #20 capsule PRN Reason: Cough Azithromycin [Zithromax Z-UMANG] 250 mg PO DAILY #6 tablet Referrals: RAVINDER TORRES MD [Staff Physician] - 3-5 Days Time of Disposition: 08:20
[2021-10-11 09:24] VITALS: BP 135/67
== END 2021-10-11 09:22 | disposition home or self-care (01) ==
LOC: ED 06:37
DX: J45.901 Unspecified asthma with (acute) exacerbation (principal); Z90.49 Acquired absence of other specified parts of digestive tract; F17.200 Nicotine dependence, unspecified, uncomplicated; Z21 Asymptomatic human immunodeficiency virus [HIV] infection status
CPT/HCPCS: 94640; 96372; 99282; J0696; J2930; J3490

== ENCOUNTER 2021-11-27 10:57 | Emergency (ER) | payer OTHER ==
[2021-11-27] MEDS ORDERED: predniSONE 20 MG TAB PO ONE (13:58)
[2021-11-27] MEDS ORDERED: diphenhydrAMINE 25 MG CAP PO ONE (13:58)
[2021-11-27] MEDS ORDERED: FAMOTIDINE 20 MG TAB PO ONE (13:59)
--- NOTE | 2021-11-27 14:16 | Emergency Department Report ---
HPI - General Chief Complaint: Allergic Reaction Time Seen by Provider: 11/27/21 13:58 - HPI HPI: 31-year-old black female with no past medical history presents to the emergency department for evaluation of allergic reaction. She states that while at work this morning, she ate some banana bread then developed chest pain, shortness of breath, abdominal pain, and itching all over. She states that she has a known history of allergy to nuts and suspects that nuts may have accidentally been inside of banana bread. She states that she had EpiPen on her person but did not have to use it. She states that chest pain and shortness of breath have improved but she is still having itching all over. ED Past Medical Hx - Past Medical History Hx Hypertension: No Hx CVA: No Hx Heart Attack/AMI: No Hx Congestive Heart Failure: No Hx Diabetes: No Hx Deep Vein Thrombosis: No Hx Pulmonary Embolism: No Hx GERD: No Hx Liver Disease: No Hx Renal Disease: No Hx Sickle Cell Disease: No Hx Arthritis: No Hx Headaches / Migraines: No Hx Psychiatric Treatment: Yes (anxiety) Hx Asthma: Yes Hx COPD: No Hx Tuberculosis: No Hx Dementia: No Hx HIV: Yes Additional medical history: TRANSGENEDER. MED NON ADHERENCE - Surgical History Hx Cholecystectomy: Yes Additional Surgical History: as baby - Social History Smoking Status: Current Every Day Smoker Substance Use Type: None - Medications Home Medications: Home Medications Medication Instructions Recorded Confirmed Last Taken Type Fluticasone [Flonase] 1 spray NS QDAY #1 bottle 03/18/19 Unknown Rx ALBUTEROL NEB's [Proventil 0.083% 2.5 mg IH TID PRN #1 box 10/05/21 Unknown Rx NEBS] Albuterol Mdi (or & Nicu Only) 2 puff IH QID PRN #1 inhalation 10/05/21 Unknown Rx [ProAir HFA Inhaler] Cetirizine HCl [ZyrTEC] 10 mg PO DAILY #30 capsule 10/05/21 Unknown Rx predniSONE [Deltasone] 20 mg PO DAILY #5 tablet 10/05/21 Unknown Rx Azithromycin [Zithromax Z-UMANG] 250 mg PO DAILY #6 tablet 10/11/21 Unknown Rx Benzonatate [Tessalon Perles] 100 mg PO Q8HR PRN #20 capsule 10/11/21 Unknown Rx predniSONE [Deltasone] 20 mg PO DAILY #5 tablet 10/11/21 Unknown Rx Prednisone [predniSONE 10 mg 10 mg PO .TAPER #1 pack 11/27/21 Unknown Rx (6-Day Pack, 21 Tabs)] hydrOXYzine PAMOATE [Vistaril] 25 mg PO Q6HR PRN #21 capsule 11/27/21 Unknown Rx ED Review of Systems ROS: Stated complaint: ALLERGIC REACTION Other details as noted in HPI Comment: All other systems reviewed and negative Constitutional: denies: chills, fever Eyes: denies: vision change ENT: denies: throat pain Respiratory: shortness of breath. denies: SOB with exertion, SOB at rest, wheezing Cardiovascular: chest pain. denies: palpitations, dyspnea on exertion, orthopnea, edema, syncope, paroxysmal nocturnal dyspnea Musculoskeletal: denies: back pain Skin: denies: rash, lesions Neurological: denies: headache, weakness Physical Exam - Physical Exam Vital Signs: Vital Signs 11/27/21 11:00 Temperature 98.3 F Pulse Rate 80 Respiratory 20 Rate Blood Pressure 128/72 O2 Sat by Pulse 100 Oximetry ED Course Vital Signs 11/27/21 11:00 Temperature 98.3 F Pulse Rate 80 Respiratory 20 Rate Blood Pressure 128/72 O2 Sat by Pulse 100 Oximetry ED Medical Decision Making - Medical Decision Making 31-year-old black female with no past medical history presents to the emergency department for evaluation of allergic reaction. She states that while at work this morning, she ate some banana bread then developed chest pain, shortness of breath, abdominal pain, and itching all over. She states that she has a known history of allergy to nuts and suspects that nuts may have accidentally been inside of banana bread. She states that she had EpiPen on her person but did not have to use it. She states that chest pain and shortness of breath have improved but she is still having itching all over. No acute distress noted. Patient will be treated in the emergency department with steroids and antihistamines and sent home with a prescription for prednisone Dosepak and Vistaril. Patient had EpiPen x2 in her purse already. She is advised to follow-up with music arranger or primary care provider for further evaluation and management. She verbalized understanding of and agreement with plan of care. Critical care attestation.: If time is entered above; I have spent that time in minutes in the direct care of this critically ill patient, excluding procedure time. ED Disposition Clinical Impression: Allergic reaction Qualifiers: Encounter type: initial encounter Qualified Code(s): T78.40XA - Allergy, unspecified, initial encounter Disposition: HOME / SELF CARE / HOMELESS Is pt being admited?: No Does the pt Need Aspirin: No Condition: Stable Instructions: Allergies, Adult, [id number], How to Use an Auto-Injector Pen Additional Instructions: Take medication as prescribed. Follow-up with primary care provider if no improvement or worsening symptoms. Prescriptions: Prednisone [predniSONE 10 mg (6-Day Pack, 21 Tabs)] 10 mg PO .TAPER #1 pack hydrOXYzine PAMOATE [Vistaril] 25 mg PO Q6HR PRN #21 capsule PRN Reason: Itching Referrals: PRIMARY CARE,MD [Primary Care Provider] - 3-5 Days Forms: Work/School Release Form(ED) Time of Disposition: 14:16 ED ALLG RXN EXAM - General General appearance: alert, in no apparent distress Limitations: No Limitations Head exam: Positive: atraumatic, normocephalic Eye exam: normal appearance ENT Exam: Positive: Normal Exam, Tolerating Secretions. Negative: Drooling, Muffled Voice, Facial Edema, Lip Edema, Tongue Edema, Uvular Edema Neck exam: Positive: normal inspection. Negative: tenderness, lymphadenopathy Respiratory exam: Positive: normal lung sounds bilaterally. Negative: respiratory distress, wheezes, rales, rhonchi, stridor, chest wall tenderness, accessory muscle use Cardiovascular Exam: Positive: regular rate, normal heart sounds Peripheral pulses: 2+: Radial (R), Radial (L), Dorsalis Pedis (R), Dorsalis Pedis (L) GI/Abdominal exam: Positive: normal bowel sounds. Negative: distended, tenderness, guarding, rebound, rigid Extremities exam: Positive: normal inspection, full ROM, normal capillary refill. Negative: tenderness, pedal edema, joint swelling, calf tenderness Back exam: normal inspection Neurological exam: Positive: alert, oriented X3, normal gait, reflexes normal. Negative: motor sensory deficit Psychiatric exam: Positive: normal affect, normal mood Skin exam: Positive: warm, dry, intact, normal color. Negative: rash
[2021-11-27 14:45] VITALS: BP 105/69
== END 2021-11-27 14:46 | disposition home or self-care (01) ==
LOC: ED 10:57
DX: T78.40XA Allergy, unspecified, initial encounter (principal); F41.9 Anxiety disorder, unspecified; J45.909 Unspecified asthma, uncomplicated; Z90.49 Acquired absence of other specified parts of digestive tract; Z79.899 Other long term (current) drug therapy; F17.200 Nicotine dependence, unspecified, uncomplicated; X58.XXXA Exposure to other specified factors, initial encounter
CPT/HCPCS: 93005; 99282

== ENCOUNTER 2021-12-07 07:08 | Emergency (ER) | payer OTHER ==
[2021-12-07 07:21] VITALS: BP 129/78
[2021-12-07] MEDS ORDERED: methylPREDNISolone Sod Succinate 125 MG/2 ML INJ IM ONE (08:43)
[2021-12-07] MEDS ORDERED: IPRATROPIUM/ALBUTEROL SULFATE 3 ML AMPUL.NEB IH ONE (08:43)
--- NOTE | 2021-12-07 08:46 | Emergency Department Report ---
Minor Respiratory - HPI Chief Complaint: Chest Pain Stated Complaint: CHEST PAIN/SOB Time Seen by Provider: 12/07/21 07:50 ED Review of Systems ROS: Stated complaint: CHEST PAIN/SOB Other details as noted in HPI ED Past Medical Hx - Past Medical History Hx Hypertension: No Hx CVA: No Hx Heart Attack/AMI: No Hx Congestive Heart Failure: No Hx Diabetes: No Hx Deep Vein Thrombosis: No Hx Pulmonary Embolism: No Hx GERD: No Hx Liver Disease: No Hx Renal Disease: No Hx Sickle Cell Disease: No Hx Arthritis: No Hx Headaches / Migraines: No Hx Psychiatric Treatment: Yes (anxiety) Hx Asthma: Yes Hx COPD: No Hx Tuberculosis: No Hx Dementia: No Hx HIV: Yes Additional medical history: TRANSGENEDER. MED NON ADHERENCE - Surgical History Hx Cholecystectomy: Yes Additional Surgical History: as baby - Social History Smoking Status: Current Every Day Smoker Substance Use Type: None - Medications Home Medications: Home Medications Medication Instructions Recorded Confirmed Last Taken Type ALBUTEROL NEB's [Proventil 0.083% 2.5 mg IH TID PRN #1 box 12/07/21 Unknown Rx NEBS] Albuterol Mdi (or & Nicu Only) 2 puff IH QID PRN #1 inhalation 12/07/21 Unknown Rx [ProAir HFA Inhaler] Fluticasone [Flonase] 1 spray NS QDAY #1 bottle 12/07/21 Unknown Rx predniSONE [Deltasone] 20 mg PO DAILY #5 tablet 12/07/21 Unknown Rx Minor Respiratory Exam - Exam General: Vital signs noted. No distress. Alert and acting appropriately. Neurologic: Alert and oriented, no deficits. Musculoskeletal: Unremarkable. ED Course Vital Signs 12/07/21 07:20 Temperature 98.0 F Pulse Rate 80 Respiratory 18 Rate Blood Pressure 129/78 O2 Sat by Pulse 95 Oximetry Critical care attestation.: If time is entered above; I have spent that time in minutes in the direct care of this critically ill patient, excluding procedure time. ED Disposition Clinical Impression: Bronchitis Disposition: 01 HOME / SELF CARE / HOMELESS Is pt being admited?: No Does the pt Need Aspirin: No Condition: Stable Instructions: Chronic Bronchitis (ED), Upper Respiratory Infection, Adult, [id number] Additional Instructions: Medications as ordered today Follow-up with PCP in 2 days Referral below Motrin or Tylenol for pain Stay well-hydrated Referrals: CARBUCCIA,RAVINDER, MD [Staff Physician] - 3-5 Days Time of Disposition: 08:44
--- NOTE | 2021-12-07 09:05 | XRay Report ---
CHEST 2 VIEWS INDICATION: sob. COMPARISON: 10/05/2021 FINDINGS: Support devices: None. Heart: Within normal limits. Lungs/Pleura: No acute air space or interstitial disease. No significant pleural effusion. IMPRESSION: No acute findings. Signer Name: Steven Lambert MD Signed: 12/07/2021 9:01 AM Workstation Name: [id number]
--- NOTE | 2021-12-08 20:17 | Electrocardiograph Report ---
[facility] Test Date: 2021-12-07 Test Time: 07:28:37 Pat Name: JARETT MUNGUIA Department: Room: Gender: M Hub Cutter: RAVINDRA : 1990 Requested By: NANCY MALONE Order Number: [id number] Reading MD: Patrick uHgo Measurements Intervals [place] Rate: 71 P: 69 TN: 163 QRS: 69 QRSD: 86 T: -2 QT: 387 QTc: 419 Interpretive Statements Sinus rhythm Compared to ECG 11/27/2021 11:02:53 No significant change Electronically Signed On 12-08-2021 20:16:48 EDT by Patrick Hugo
== END 2021-12-07 09:56 | disposition home or self-care (01) ==
LOC: ED 07:08
DX: J40 Bronchitis, not specified as acute or chronic (principal); F41.9 Anxiety disorder, unspecified; Z21 Asymptomatic human immunodeficiency virus [HIV] infection status; Z90.49 Acquired absence of other specified parts of digestive tract; F17.200 Nicotine dependence, unspecified, uncomplicated
CPT/HCPCS: 71046; 93005; 94640; 96372; 99283; J2930; 94644

== ENCOUNTER 2022-05-10 14:58 | Emergency (ER) | payer SELFPAY ==
[2022-05-10 15:23] VITALS: BP 151/86
[2022-05-11] MEDS ORDERED: BENZONATATE 100 MG CAP PO ONE (07:52)
[2022-05-11] MEDS ORDERED: NAPROXEN 500 MG TAB PO NR (08:00)
--- NOTE | 2022-05-11 08:26 | XRay Report ---
CHEST 2 VIEWS INDICATION / CLINICAL INFORMATION: cough. COMPARISON: 12/07/2021 FINDINGS: SUPPORT DEVICES: None. HEART / MEDIASTINUM: No significant abnormality. LUNGS / PLEURA: No significant pulmonary or pleural abnormality. No pneumothorax. ADDITIONAL FINDINGS: No significant additional findings. IMPRESSION: 1. No acute findings. Signer Name: Adrián Alcala MD Signed: 05/11/2022 8:22 AM Workstation Name: [id number]
[2022-05-11 08:28] LABS: Eosinophils # (Auto) 0.4 K/mm3 (0.0-0.4); Eosinophils % (Auto) 8.3 % (0.0-4.3); Hematocrit 40.7 % (35.5-45.6); Hemoglobin 12.8 gm/dl (11.8-15.2); Lymphocytes # (Auto) 1.4 K/mm3 (1.2-5.4); Lymphocytes % (Auto) 31.3 % (13.4-35.0); Mean Corpuscular HGB Conc 31 % (32-34); Mean Corpuscular Volume 96 fl (84-94); Monocytes # (Auto) 0.3 K/mm3 (0.0-0.8); Monocytes % (Auto) 6.9 % (0.0-7.3); Platelet Count 158 K/mm3 (140-440); Red Blood Count 4.23 M/mm3 (3.65-5.03)
[2022-05-11 08:36] LABS: INR 0.91 (0.87-1.13)
[2022-05-11 08:37] LABS: Partial Thromboplastin Time 26.2 Sec. (24.2-36.6)
[2022-05-11 08:51] LABS: Alanine Aminotransferase 23 units/L (7-56); Albumin 5.1 g/dL (3.9-5); BUN/Creatinine Ratio 13; Blood Urea Nitrogen 10 mg/dL (9-20); Calcium 9.7 mg/dL (8.4-10.2); Hemolysis Index 37
--- NOTE | 2022-05-11 09:05 | Emergency Department Report ---
- General Chief Complaint: Chest Pain Stated Complaint: CHEST PAIN/ASTHMA ISSUES Time Seen by Provider: 05/11/22 07:43 Source: patient Mode of arrival: Ambulatory Limitations: No Limitations - History of Present Illness Initial Comments: This is a 32-year-old male nontoxic, well nourished in appearance, no acute signs of distress presents to the ED with c/o of productive cough, chest pains during coughing, body aches, rhinorrhea, nasal congestion x several days. Patient describes productive cough as yellow mucus production. Patient denies any sick contacts. Patient denies any recent travels, long car, recent hospital stays. Patient denies pleuritic chest pain. Patient denies any calf pain or calf tenderness. Patient denies any chest pain, short of breath, fever, chills, nausea, vomiting, hemoptysis, numbness, tingling, headache or stiff neck. Denies any drug allergies. MD Complaint: cough, rhinorrhea, nasal congestion, other (chest pain, body aches) -: days(s) Severity: mild Severity scale (0 -10): 3 Quality: aching Consistency: constant Improves With: nothing Worsens With: nothing Associated Symptoms: rhinorrhea, nasal congestion, cough, chest pain, other (body aches). denies: fever, chills, myalgias, diaphoresis, headache, sore throat, stiff neck, shortness of breath, abdominal pain, nausea, vomiting, diarrhea, dysuria, rash, confusion, right sweats, weight loss, epistaxis, hoarseness, ear pain Treatments Prior to Arrival: none - Related Data Previous Rx's Medication Instructions Recorded Last Taken Type ALBUTEROL NEB's [Proventil 0.083% 2.5 mg IH TID PRN #1 box 12/07/21 Unknown Rx NEBS] Albuterol Mdi (or & Nicu Only) 2 puff IH QID PRN #1 inhalation 12/07/21 Unknown Rx [ProAir HFA Inhaler] Fluticasone [Flonase] 1 spray NS QDAY #1 bottle 12/07/21 Unknown Rx predniSONE [Deltasone] 20 mg PO DAILY #5 tablet 12/07/21 Unknown Rx Benzonatate [Tessalon Perles] 100 mg PO Q8HR PRN #14 cap 05/11/22 Unknown Rx Naproxen 500 mg PO Q12H PRN #12 tab 05/11/22 Unknown Rx Allergies Allergy/AdvReac Type Severity Reaction Status Date / Time pecan nut Allergy Swelling Verified 05/10/22 15:23 shellfish derived Allergy Hives Verified 05/10/22 15:23 ED Review of Systems ROS: Stated complaint: CHEST PAIN/ASTHMA ISSUES Other details as noted in HPI Comment: All other systems reviewed and negative Constitutional: denies: chills, fever Eyes: denies: eye pain, eye discharge, vision change ENT: congestion. denies: ear pain, throat pain Respiratory: cough. denies: orthopnea, shortness of breath, SOB with exertion, SOB at rest, wheezing Cardiovascular: chest pain. denies: palpitations, dyspnea on exertion, orthopnea, edema, syncope, paroxysmal nocturnal dyspnea Endocrine: no symptoms reported Gastrointestinal: denies: abdominal pain, nausea, diarrhea Genitourinary: denies: urgency, dysuria Musculoskeletal: denies: back pain, joint swelling, arthralgia Skin: denies: rash, lesions Neurological: denies: headache, weakness, paresthesias Psychiatric: denies: anxiety, depression Hematological/Lymphatic: denies: easy bleeding, easy bruising ED Past Medical Hx - Past Medical History Hx Hypertension: No Hx CVA: No Hx Heart Attack/AMI: No Hx Congestive Heart Failure: No Hx Diabetes: No Hx Deep Vein Thrombosis: No Hx Pulmonary Embolism: No Hx GERD: No Hx Liver Disease: No Hx Renal Disease: No Hx Sickle Cell Disease: No Hx Arthritis: No Hx Headaches / Migraines: No Hx Psychiatric Treatment: Yes (anxiety) Hx Asthma: Yes Hx COPD: No Hx Tuberculosis: No Hx Dementia: No Hx HIV: Yes Additional medical history: TRANSGENEDER. MED NON ADHERENCE - Surgical History Hx Cholecystectomy: Yes Additional Surgical History: as baby - Social History Smoking Status: Current Every Day Smoker Substance Use Type: None - Medications Home Medications: Home Medications Medication Instructions Recorded Confirmed Last Taken Type ALBUTEROL NEB's [Proventil 0.083% 2.5 mg IH TID PRN #1 box 12/07/21 Unknown Rx NEBS] Albuterol Mdi (or & Nicu Only) 2 puff IH QID PRN #1 inhalation 12/07/21 Unknown Rx [ProAir HFA Inhaler] Fluticasone [Flonase] 1 spray NS QDAY #1 bottle 12/07/21 Unknown Rx predniSONE [Deltasone] 20 mg PO DAILY #5 tablet 12/07/21 Unknown Rx Benzonatate [Tessalon Perles] 100 mg PO Q8HR PRN #14 cap 05/11/22 Unknown Rx Naproxen 500 mg PO Q12H PRN #12 tab 05/11/22 Unknown Rx ED Physical Exam - General Limitations: No Limitations General appearance: alert, in no apparent distress - Head Head exam: Present: atraumatic, normocephalic - Eye Eye exam: Present: normal appearance - Neck Neck exam: Present: normal inspection, full ROM. Absent: tenderness, meningismus, lymphadenopathy - Respiratory Respiratory exam: Present: normal lung sounds bilaterally, chest wall tenderness (midsternum ). Absent: respiratory distress, wheezes, rales, rhonchi, stridor, accessory muscle use, decreased breath sounds, prolonged expiratory - Cardiovascular Cardiovascular Exam: Present: regular rate, normal rhythm, normal heart sounds. Absent: bradycardia, tachycardia, irregular rhythm, systolic murmur, diastolic murmur, rubs, gallop - GI/Abdominal GI/Abdominal exam: Present: soft. Absent: distended, tenderness - Extremities Exam Extremities exam: Present: full ROM - Back Exam Back exam: Present: normal inspection, full ROM. Absent: tenderness, CVA tende rness (R), CVA tenderness (L), muscle spasm, paraspinal tenderness, vertebral tenderness, rash noted - Neurological Exam Neurological exam: Present: alert, oriented X3, normal gait - Psychiatric Psychiatric exam: Present: normal affect, normal mood - Skin Skin exam: Present: warm, dry, intact, normal color. Absent: rash ED Course Vital Signs 05/10/22 15:21 Temperature 97 F L Pulse Rate 83 Respiratory 18 Rate Blood Pressure 151/86 [Left] O2 Sat by Pulse 97 Oximetry - Reevaluation(s) Reevaluation #1: 05/11/22 09:03 Patient is speaking in full sentences with no signs of distress noted. ED Medical Decision Making - Lab Data Result diagrams: 05/11/22 08:00 05/11/22 08:00 Lab Results 05/11/22 05/11/22 05/11/22 Range/Units 08:00 08:00 08:00 WBC 4.4 L (4.5-11.0) K/mm3 RBC 4.23 (3.65-5.03) M/mm3 Hgb 12.8 (11.8-15.2) gm/dl Hct 40.7 (35.5-45.6) % MCV 96 H (84-94) fl MCH 30 (28-32) pg MCHC 31 L (32-34) % RDW 15.0 (13.2-15.2) % Plt Count 158 (140-440) K/mm3 Lymph % (Auto) 31.3 (13.4-35.0) % [place] % (Auto) 6.9 (0.0-7.3) % Eos % (Auto) 8.3 H (0.0-4.3) % Baso % (Auto) 1.0 (0.0-1.8) % Lymph # (Auto) 1.4 (1.2-5.4) K/mm3 [place] # (Auto) 0.3 (0.0-0.8) K/mm3 Eos # (Auto) 0.4 (0.0-0.4) K/mm3 Baso # (Auto) 0.0 (0.0-0.1) K/mm3 Seg Neutrophils % 52.5 (40.0-70.0) % Seg Neutrophils # 2.3 (1.8-7.7) K/mm3 PT 13.5 (12.2-14.9) Sec. INR 0.91 (0.87-1.13) APTT 26.2 (24.2-36.6) Sec. Sodium 142 (137-145) mmol/L Potassium 4.5 (3.6-5.0) mmol/L Chloride 103.4 (98-107) mmol/L Carbon Dioxide 25 (22-30) mmol/L Anion Gap 18 mmol/L BUN 10 (9-20) mg/dL Creatinine 0.8 (0.8-1.3) mg/dL Estimated GFR > 60 ml/min BUN/Creatinine Ratio 13 % Glucose 95 (75-100) mg/dL Calcium 9.7 (8.4-10.2) mg/dL Total Bilirubin 0.70 (0.1-1.2) mg/dL AST 21 (5-40) units/L ALT 23 (7-56) units/L Alkaline Phosphatase 88 (35-129) units/L Troponin T < 0.010 (0.00-0.029) ng/mL Total Protein 8.0 (6.3-8.2) g/dL Albumin 5.1 H (3.9-5) g/dL Albumin/Globulin Ratio 1.8 % Urine Color (Yellow) Urine Turbidity (Clear) Specific [place] (Man) (1.003-1.030) Ur Protein (Man) (Negative) mg/dL Ur Ketones (Man) (Negative) Ur Nitrite (Man) (Negative) Ur Reducing Substances Urine Bilirubin (Man) (Negative) Urine Ictotest Leukocyte Esterase (Man) (Negative) Urine WBC (Auto) (0.0-6.0) /HPF Urine RBC (Auto) (0.0-6.0) /HPF U Epithel Cells (Auto) (0-13.0) /HPF Urine Bacteria (Auto) (Negative) /HPF Urine RBC (Manual) (Negative) 05/11/22 Range/Units 08:57 WBC (4.5-11.0) K/mm3 RBC (3.65-5.03) M/mm3 Hgb (11.8-15.2) gm/dl Hct (35.5-45.6) % MCV (84-94) fl MCH (28-32) pg MCHC (32-34) % RDW (13.2-15.2) % Plt Count (140-440) K/mm3 Lymph % (Auto) (13.4-35.0) % [place] % (Auto) (0.0-7.3) % Eos % (Auto) (0.0-4.3) % Baso % (Auto) (0.0-1.8) % Lymph # (Auto) (1.2-5.4) K/mm3 [place] # (Auto) (0.0-0.8) K/mm3 Eos # (Auto) (0.0-0.4) K/mm3 Baso # (Auto) (0.0-0.1) K/mm3 Seg Neutrophils % (40.0-70.0) % Seg Neutrophils # (1.8-7.7) K/mm3 PT (12.2-14.9) Sec. INR (0.87-1.13) APTT (24.2-36.6) Sec. Sodium (137-145) mmol/L Potassium (3.6-5.0) mmol/L Chloride (98-107) mmol/L Carbon Dioxide (22-30) mmol/L Anion Gap mmol/L BUN (9-20) mg/dL Creatinine (0.8-1.3) mg/dL Estimated GFR ml/min BUN/Creatinine Ratio % Glucose (75-100) mg/dL Calcium (8.4-10.2) mg/dL Total Bilirubin (0.1-1.2) mg/dL AST (5-40) units/L ALT (7-56) units/L Alkaline Phosphatase (35-129) units/L Troponin T (0.00-0.029) ng/mL Total Protein (6.3-8.2) g/dL Albumin (3.9-5) g/dL Albumin/Globulin Ratio % Urine Color Straw (Yellow) Urine Turbidity Clear (Clear) Specific [place] (Man) 1.010 (1.003-1.030) Ur Protein (Man) Negative (Negative) mg/dL Ur Ketones (Man) Negative (Negative) Ur Nitrite (Man) Negative (Negative) Ur Reducing Substances Not Reportable Urine Bilirubin (Man) Negative (Negative) Urine Ictotest Not Reportable Leukocyte Esterase (Man) Negative (Negative) Urine WBC (Auto) 1.0 (0.0-6.0) /HPF Urine RBC (Auto) < 1.0 (0.0-6.0) /HPF U Epithel Cells (Auto) 3.0 (0-13.0) /HPF Urine Bacteria (Auto) 1+ (Negative) /HPF Urine RBC (Manual) Negative (Negative) - EKG Data 05/11/22 09:50 Normal sinus rhythm at 78 bpm. Reviewed and signed by . - Radiology Data [facility] [address] [place] [address] XRay Report Signed Patient: JARETT MUNGUIA MR#: [id number] : 1990 Acct:[id number] Age/Sex: 32 / M ADM Date: 05/10/22 Loc: ED Attending Dr: Ordering Physician: GUCCI TURNER NP Date of Service: 05/11/22 Procedure(s): XR chest routine 2V Accession Number(s): [id number] cc: GUCCI TURNER NP Fluoro Time In Minutes: CHEST 2 VIEWS INDICATION / CLINICAL INFORMATION: cough. COMPARISON: 12/07/2021 FINDINGS: SUPPORT DEVICES: None. HEART / MEDIASTINUM: No significant abnormality. LUNGS / PLEURA: No significant pulmonary or pleural abnormality. No pneumothorax. ADDITIONAL FINDINGS: No significant additional findings. IMPRESSION: 1. No acute findings. Signer Name: Adrián Alcala MD Signed: 05/11/2022 8:22 AM Workstation Name: [id number] Transcribed By: SHELL Dictated By: Adrián Alcala MD Electronically Authenticated By: Adrián Alcala MD Signed Date/Time: 05/11/22821 DD/ 0 TD/TT: - Medical Decision Making This is a 32-year-old male that presents with suspected covid and costochondritis. Patient is stable and was examined by me. CARLTON and HEART score 0 pints. PERC score for DVT/SVT/PE 0 points. EKG normal sinus rhythm with no significant changes in ST. Chest x-ray has been obtained and dictated by radiologist with normal exam. Patient is notified of x-ray results with no questions noted. Patient does meet clinical concerns of COVID-19 and patient was instructed and educated on signs and symptoms and to self quarantine and seek medical attention as soon as possible if symptoms worsen and continue. Patient was instructed to increase hydration, rest and take Motrin for fever episodes. Patient received motrin and tesslone perrls in the ED. Vitals stable. Patient is nonfebrile and normal heart rate. Patient was instructed Follow-up with a primary care doctor in 3-5 days or if symptoms worsen and continue return to emergency room as soon as possible. At time time of discharge, the patient does not seem toxic or ill in appearance. No acute signs of distress noted. Patient agrees to discharge treatment plan of care. No further questions noted by the patient.nt. Critical care attestation.: If time is entered above; I have spent that time in minutes in the direct care of this critically ill patient, excluding procedure time. ED Disposition Clinical Impression: Costochondritis, Suspected COVID-19 virus infection Disposition: HOME / SELF CARE / HOMELESS Is pt being admited?: No Does the pt Need Aspirin: No Condition: Stable Instructions: Costochondritis, [id number], COVID-19 Frequently Asked Sukh ramirez COVID-19 Additional Instructions: Follow-up with a primary care doctor in 3-5 days or if symptoms worsen and continue return to emergency room as soon as possible. Your symptoms appear most consistent with suspected COVID. Given this current pandemic, COVID-19 is in the differential of possibilities. Despite your previous negative COVID-19 test, I do recommend repeat outpatient Covid 19 testing. In the meantime, isolate/quarantine yourself and stay away from anyone who is elderly, immunocompromised or chronically ill. Please see your nearest health department or primary care doctor that you are referred to for COVID testing. Increased rest, hydration, and take [id number] Tylenol as directed from instructions label for pain/fever episode. Prescriptions: Naproxen 500 mg PO Q12H PRN #12 tab PRN Reason: Pain , Severe (7-10) Benzonatate [Tessalon Perles] 100 mg PO Q8HR PRN #14 cap PRN Reason: Cough Referrals: PRIMARY CAREMD [Primary Care Provider] - 3-5 Days RAVINDER TORRES MD [Staff Physician] - 3-5 Days Time of Disposition: 09:53
[2022-05-11 09:38] LABS: Bacteria,Urine 1+ /HPF (Negative); RBC,Urine < 1.0 /HPF (0.0-6.0)
[2022-05-11 09:40] LABS: Color,Urine Straw (Yellow)
--- NOTE | 2022-05-12 13:16 | Electrocardiograph Report ---
[facility] Test Date: 2022-05-10 Test Time: 15:29:32 Pat Name: JARETT MUNGUIA Department: Room: Gender: M [employer] Faculty Member: ALIX : 1990 Requested By: NANCY MALONE Order Number: [id number] Reading MD: Patrick Hugo Measurements Intervals Friend Rate: 78 P: 54 TN: 159 QRS: 40 QRSD: 84 T: 2 QT: 364 QTc: 416 Interpretive Statements Sinus rhythm Compared to ECG 12/07/2021 07:28:37 No significant changes Electronically Signed On 05-12-2022 13:16:30 EDT by Patrick Hugo
== END 2022-05-11 12:17 | disposition home or self-care (01) ==
LOC: ED 14:58
DX: M94.0 Chondrocostal junction syndrome [Tietze] (principal); Z20.822 Contact with and (suspected) exposure to COVID-19; F17.200 Nicotine dependence, unspecified, uncomplicated; Z90.49 Acquired absence of other specified parts of digestive tract; Z91.013 Allergy to seafood; Z91.010 Allergy to peanuts
CPT/HCPCS: 36415; 71046; 80053; 81001; 84484; 85025; 85610; 85730; 93005; 99284